=== PATIENT | male | born 1950 | race Caucasian/White ===

== ENCOUNTER 2024-05-29 18:28 | Inpatient (IN) ==
--- NOTE | 2024-05-29 18:53 | Emergency Department Note ---
Impression & Plan Abscess of prostate, Acute prostatitis, Altered mental status, Hypomagnesemia, Elevated troponin I level, Sinus tachycardia ED Provider Note NAME: MATEUS GUTIERREZ AGE: 73 SEX: M : 1950 ARRIVES VIA: Ambulance INFORMANT: Patient, EMS ED PROVIDER(S): Jarrell Ziegler DO CHIEF COMPLAINT: Altered mental status HPI: The patient is a 73-year-old male who presented to the emergency department for an evaluation of altered mental status. 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 He states that he felt well today. He denies any drug or alcohol use. The patient was driving erratically in his truck. The traffic was stopped. The police were called. The patient was evaluated and was felt to be having a medical emergency. 911 was called and the patient arrived via ambulance. The patient denies having any chest pain or abdominal pain. On arrival to the emergency department he had a large watery bowel movement. He denies having any abdominal pain or back pain. He denies having any headaches. ROS: See above HPI for pertinent positives & negatives. A total of 10 systems reviewed and were otherwise negative. PAST MEDICAL HISTORY: See Below PAST SURGICAL HISTORY: See Below FAMILY HISTORY: See Below SOCIAL HISTORY: See Below HOME MEDICATIONS: See Below ALLERGIES: See Below VITALS: See Below PHYSICAL EXAMINATION: GENERAL: The patient is awake and alert. The patient is nonanxious appearing. EYES: The conjunctivae are clear. The pupils are round and reactive. EARS, NOSE, MOUTH AND THROAT: The nose is without any evidence of any deformity. Mucous membranes are dry. NECK: The neck is nontender and supple. RESPIRATORY: Normal respiratory effort is noted there is no evidence of wheezing rhonchi or rales CARDIOVASCULAR: Tachycardic and regular heart sounds were noted to auscultation. There is no definite murmur. GASTROINTESTINAL: The abdomen was soft and distended. There is no tenderness guarding rigidity MUSCULOSKELETAL/EXTREMITIES: There is no evidence of gross deformity full range of motion is noted in the hips and shoulders. SKIN: There is no obvious evidence of any rash. There are no petechiae, pallor or cyanosis noted. NEUROLOGIC: Patient is awake alert and oriented x3 strength is symmetric patellar reflexes are 2+ bilaterally MEDICAL DECISION MAKING: The patient is a 73-year-old male who presented to the emergency department for an evaluation of altered mental status. 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 He was driving down the highway when he became confused. He was driving very erratically. Police were called. The police called the ambulance when the patient appeared to have a medical emergency. The patient arrived tachycardic. He was awake and alert at that time and had no focal neurologic deficit. He had no abdominal pain. The patient had a large amount of diarrhea when he first got to the emergency department. There was concerns given the patient's vital signs that he may be septic. For this reason a septic workup was undertaken. The patient was given IV fluids as well as IV antibiotics. Antibiotic coverage was broadened after CAT scan was finally returned and does appear to be consistent with a possible prostate abscess. I discussed patient's condition with the on-call [facility] hospitalist. They have agreed to evaluate the patient in the emergency department. The patient was found to have escalating troponins which could be secondary to the sepsis. Triage Nursing notes reviewed. Prior medical records reviewed Vital Signs: reviewed and remarkable for tachycardia. Differential diagnosis: Infection, hypoglycemia, electrolyte abnormalities, overdose, toxicologic, cardiac sources, intracerebral event, neurologic, trauma, as well as other pathologies. ER treatment provided: See below Diagnostics interpreted by me: ECG: EKG was obtained in the emergency department. My interpretation is sinus tachycardia at 130 bpm. There is no PVCs noted. Nonspecific ST depressions were noted. No previous tracing was available. Cardiac Monitoring: An order was placed for continuous cardiac monitoring. The monitor shows a rate of 118 bpm with sinus tachycardia. Laboratory studies: As stated above and show below. Imaging studies: See below. Radiographic imaging was reviewed by myself Consultation(s): I discussed this case with Dr. Brewer [facility] ED COURSE: Procedures: none Critical Care: I have personally spent greater than 45 minutes of critical care time in the direct management of this patient. This includes bedside care, interpretation of diagnostic studies, and testing, discussion with consultants, patient, and family members, and other required patient management activities. This 45 minutes is in excess of all separately billable procedures. Past Med/Surg History Problem List (Updated 05/29/24 @ 21:02 by Jarrell Ziegler DO) Sinus tachycardia (Acute) Elevated troponin I level (Acute) Hypomagnesemia (Acute) Altered mental status (Acute) Medical History Hypertension Diabetes High cholesterol Social History Smoking Status: Never smoker Preferred Language: Indonesian Feels Safe at Home: Yes Allergies Allergies Allergy/AdvReac Type Severity Reaction Status Date / Time Penicillins Allergy Unknown Verified 05/29/24 20:08 Results & Data (ED) Vital Signs Vital Signs - 24 hr 05/29/24 18:40 05/29/24 18:40 05/29/24 18:40 Temperature 37 C Temperature Source Oral Pulse Rate 128 H Pulse Rate [Apical] Pulse Rhythm Regular Pulse Rhythm [Apical] Pulse Strength Normal Pulse Strength [Apical] Respiratory Rate 18 Respiratory Effort / Characteristics Non-Labored Spontaneous Respiratory Depth Normal Respiratory Pattern Regular Blood Pressure 142/68 H Blood Pressure [Right Arm] Blood Pressure Mean 92 Blood Pressure Mean [Right Arm] Blood Pressure Position Lying Blood Pressure Position [Right Arm] Pulse Oximetry 95 95 95 Oxygen Delivery Method Room Air Room Air Room Air Oxygen Flow Rate Sepsis Recent Fever Within 48 Hours No Sepsis New/Unexplained Change in Mental Status Yes Sepsis Action Taken by Nursing Physician Notified 05/29/24 18:55 05/29/24 19:40 05/29/24 20:15 Temperature Temperature Source Pulse Rate 132 H Pulse Rate [Apical] 142 H 132 H Pulse Rhythm Pulse Rhythm [Apical] Regular Regular Pulse Strength Pulse Strength [Apical] Normal Normal Respiratory Rate 20 22 19 Respiratory Effort / Characteristics Non-Labored Spontaneous Non-Labored Spontaneous Respiratory Depth Normal Normal Respiratory Pattern Regular Regular Blood Pressure 141/63 H Blood Pressure [Right Arm] 125/58 L Blood Pressure Mean 89 Blood Pressure Mean [Right Arm] 80 Blood Pressure Position Blood Pressure Position [Right Arm] Lying Pulse Oximetry 94 96 96 Oxygen Delivery Method Room Air Room Air Oxygen Flow Rate Sepsis Recent Fever Within 48 Hours Sepsis New/Unexplained Change in Mental Status Sepsis Action Taken by Nursing 05/29/24 20:19 05/29/24 20:35 05/29/24 20:36 Temperature Temperature Source Pulse Rate 134 H 129 H Pulse Rate [Apical] Pulse Rhythm Pulse Rhythm [Apical] Pulse Strength Pulse Strength [Apical] Respiratory Rate 29 H Respiratory Effort / Characteristics Respiratory Depth Respiratory Pattern Blood Pressure 134/75 Blood Pressure [Right Arm] Blood Pressure Mean 94 Blood Pressure Mean [Right Arm] Blood Pressure Position Blood Pressure Position [Right Arm] Pulse Oximetry 88 L 93 Oxygen Delivery Method Room Air Nasal Cannula Oxygen Flow Rate 2 Sepsis Recent Fever Within 48 Hours Sepsis New/Unexplained Change in Mental Status Sepsis Action Taken by Nursing 05/29/24 21:00 05/29/24 21:03 05/29/24 21:26 Temperature Temperature Source Pulse Rate 123 H Pulse Rate [Apical] 121 H 120 H Pulse Rhythm Pulse Rhythm [Apical] Regular Regular Pulse Strength Pulse Strength [Apical] Normal Normal Respiratory Rate 32 H 20 26 H Respiratory Effort / Characteristics Non-Labored Spontaneous Non-Labored Spontaneous Respiratory Depth Normal Normal Respiratory Pattern Regular Regular Blood Pressure Blood Pressure [Right Arm] 119/70 130/65 Blood Pressure Mean Blood Pressure Mean [Right Arm] 86 86 Blood Pressure Position Blood Pressure Position [Right Arm] Lying Lying Pulse Oximetry 96 95 Oxygen Delivery Method Room Air Nasal Cannula Oxygen Flow Rate 2 Sepsis Recent Fever Within 48 Hours Sepsis New/Unexplained Change in Mental Status Sepsis Action Taken by Nursing 05/29/24 22:23 Temperature 39.4 C H Temperature Source Oral Pulse Rate Pulse Rate [Apical] 132 H Pulse Rhythm Pulse Rhythm [Apical] Regular Pulse Strength Pulse Strength [Apical] Normal Respiratory Rate 28 H Respiratory Effort / Characteristics Non-Labored Spontaneous Respiratory Depth Normal Respiratory Pattern Regular Blood Pressure Blood Pressure [Right Arm] 124/72 Blood Pressure Mean Blood Pressure Mean [Right Arm] 89 Blood Pressure Position Blood Pressure Position [Right Arm] Lying Pulse Oximetry 93 Oxygen Delivery Method Room Air Oxygen Flow Rate Sepsis Recent Fever Within 48 Hours Sepsis New/Unexplained Change in Mental Status Sepsis Action Taken by Retirement Medications Current Medication List: was personally reviewed by me Laboratory Data Attestation: I reviewed the patient's lab results. 05/29/24 18:50 05/29/24 18:50 Lab Results 05/29/24 05/29/24 05/29/24 Range/Units 18:50 19:05 20:04 WBC 9.81 (4.8-10.8) K/ul RBC 3.81 L (4.70-6.10) M/uL Hgb 10.4 L (14.0-18.0) g/dl POC Hgb 10.5 L (14.0-18.0) g/dl Hct 32.9 L (42.0-52.0) % POC Hct 31 L (42-52) % MCV 86.4 (80.0-100.0) fL MCH 27.3 (25.0-34.0) pg MCHC 31.6 L (32.0-36.0) g/dL RDW Std Deviation 47.0 H (36.4-46.3) fL RDW Coeff of Michael 14.8 H (11.5-14.5) % Plt Count 304 (130-400) K/uL MPV 9.3 L (9.4-12.4) fL Immature Gran % (Auto) 0.4 % Neut % (Auto) 95.0 % Lymph % (Auto) 3.9 % Pinal % (Auto) 0.2 % Eos % (Auto) 0.3 % Baso % (Auto) 0.2 % Neut # (Auto) 9.32 H (1.40-6.50) K/uL Lymph # (Auto) 0.38 L (1.20-3.40) K/uL Pinal # (Auto) 0.02 L (0.11-0.59) K/uL Eos # (Auto) 0.03 (0.00-0.50) K/uL Baso # (Auto) 0.02 (0.00-0.20) K/uL Immature Gran # (Auto) 0.04 (0.01-0.20) K/uL Hyposegmented Neuts 1+ Toxic Vacuolation 1+ Polychromasia 1+ PT 12.4 H (9.0-12.0) Seconds INR 1.2 H (0.9-1.1) APTT 21 (21-31) Seconds PTT Ratio 0.8 VBG pH 7.43 H (7.36-7.41) VBG pCO2 40 (38-50) mmHg VBG pO2 < 20 mmHg VBG HCO3 27 mmol/L VBG O2 Saturation < 60.0 % VBG Base Excess 2.0 mEq/L POC Sodium 138 (135-144) mmol/L Sodium 137 (136-145) mmol/L POC Potassium 4.0 (3.3-5.0) mmol/L Potassium 3.7 (3.5-5.1) mmol/L POC Chloride 101 (101-112) mmol/L Chloride 101 (98-107) mmol/L Carbon Dioxide 25 (21-32) mmol/L POC Total CO2 23 L (24-31) mmol/L Anion Gap 11 (3-11) POC Anion Gap 20.0 (16-25) mmol/L POC BUN 20 H (7-18) mg/dl BUN 20 (6-23) mg/dl Creatinine 1.46 H (0.6-1.4) mg/dl POC Creatinine 1.7 H (0.6-1.3) mg/dl Est Cr Clr Drug Dosing Not Reportable eGFR 50.15 BUN/Creatinine Ratio 13.7 (10-20) Glucose 219 H (70-99(Fasting)) mg/dl POC Glucose (other) 202 H (70-99) mg/dl Lactate 2.6 H* (0.4-2.0) mmol/L Calcium 10.1 (8.6-10.3) mg/dl POC Ioniz Calcium Ara 1.26 (1.12-1.32) mmol/l Magnesium 1.2 L (1.7-2.4) mg/dl Total Bilirubin 1.0 (0.2-1.0) mg/dl Direct Bilirubin 0.3 H (0-0.2) mg/dl AST 19 (13-39) U/L ALT 42 (7-52) U/L Alkaline Phosphatase 80 (34-104) U/L Troponin I High Sens 242.0 H* (0-20) pg/ml Total Protein 7.0 (6.0-8.3) gm/dl Albumin 3.9 (3.4-5.0) gm/dl Procalcitonin 4.25 H (0-0.5) ng/ml Ethyl Alcohol mg/dL < 10.0 (<10.0) mg/dl 05/29/24 05/29/24 Range/Units 20:05 21:11 WBC (4.8-10.8) K/ul RBC (4.70-6.10) M/uL Hgb (14.0-18.0) g/dl POC Hgb (14.0-18.0) g/dl Hct (42.0-52.0) % POC Hct (42-52) % MCV (80.0-100.0) fL MCH (25.0-34.0) pg MCHC (32.0-36.0) g/dL RDW Std Deviation (36.4-46.3) fL RDW Coeff of Michael (11.5-14.5) % Plt Count (130-400) K/uL MPV (9.4-12.4) fL Immature Gran % (Auto) % Neut % (Auto) % Lymph % (Auto) % Pinal % (Auto) % Eos % (Auto) % Baso % (Auto) % Neut # (Auto) (1.40-6.50) K/uL Lymph # (Auto) (1.20-3.40) K/uL Pinal # (Auto) (0.11-0.59) K/uL Eos # (Auto) (0.00-0.50) K/uL Baso # (Auto) (0.00-0.20) K/uL Immature Gran # (Auto) (0.01-0.20) K/uL Hyposegmented Neuts Toxic Vacuolation Polychromasia PT (9.0-12.0) Seconds INR (0.9-1.1) APTT (21-31) Seconds PTT Ratio VBG pH (7.36-7.41) VBG pCO2 (38-50) mmHg VBG pO2 mmHg VBG HCO3 mmol/L VBG O2 Saturation % VBG Base Excess mEq/L POC Sodium (135-144) mmol/L Sodium (136-145) mmol/L POC Potassium (3.3-5.0) mmol/L Potassium (3.5-5.1) mmol/L POC Chloride (101-112) mmol/L Chloride (98-107) mmol/L Carbon Dioxide (21-32) mmol/L POC Total CO2 (24-31) mmol/L Anion Gap (3-11) POC Anion Gap (16-25) mmol/L POC BUN (7-18) mg/dl BUN (6-23) mg/dl Creatinine (0.6-1.4) mg/dl POC Creatinine (0.6-1.3) mg/dl Est Cr Clr Drug Dosing eGFR BUN/Creatinine Ratio (10-20) Glucose (70-99(Fasting)) mg/dl POC Glucose (other) (70-99) mg/dl Lactate 2.0 (0.4-2.0) mmol/L Calcium (8.6-10.3) mg/dl POC Ioniz Calcium Ara (1.12-1.32) mmol/l Magnesium (1.7-2.4) mg/dl Total Bilirubin (0.2-1.0) mg/dl Direct Bilirubin (0-0.2) mg/dl AST (13-39) U/L ALT (7-52) U/L Alkaline Phosphatase (34-104) U/L Troponin I High Sens 1224.2 H* D (0-20) pg/ml Total Protein (6.0-8.3) gm/dl Albumin (3.4-5.0) gm/dl Procalcitonin (0-0.5) ng/ml Ethyl Alcohol mg/dL (<10.0) mg/dl Administered Medications Discontinued Medications Sodium Chloride (Nss) 1,000 mls @ 999 mls/hr IV .Q1H1M ONE Stop: 05/29/24 19:40 Last Admin: 05/29/24 19:43 Dose: 999 mls/hr Documented By: GISELA Magnesium Sulfate/Dextrose (Magnesium Sulfate / D5w) 1 gm in 100 mls @ 100 mls/hr IV Q1H CASSANDRA Stop: 05/29/24 21:55 Last Admin: 05/29/24 22:02 Dose: 100 mls/hr Documented By: Infusion: 05/29/24 21:47 Dose: Infused Documented By: Admin: 05/29/24 20:47 Dose: 100 mls/hr Documented By: GISELA Sodium Chloride (Nss) 1,000 mls @ 999 mls/hr IV .Q1H1M ONE Stop: 05/29/24 21:19 Last Admin: 05/29/24 20:52 Dose: 999 mls/hr Documented By: GISELA Sodium Chloride (Nss) 500 mls @ 999 mls/hr IV .Q31M ONE Stop: 05/29/24 20:49 Last Admin: 05/29/24 21:16 Dose: 999 mls/hr Documented By: GISELA Cefepime HCl (Maxipime 2000mg) 2,000 mg in 20 mls @ 5 mls/min IV NOW STA; Protocol Stop: 05/29/24 21:01 Last Admin: 05/29/24 21:15 Dose: 5 mls/min Documented By: GISELA Ioversol (Optiray 320 125ml) 117 ml IV ONCE ONE Stop: 05/29/24 19:41 Last Admin: 05/29/24 19:40 Dose: 117 ml Documented By: GIOVANNI Imaging Data Attestation: I personally reviewed and interpreted this imaging study as follows: My Impression: CT of the brain was obtained in the emergency department. My interpretation is no intracranial hemorrhage or mass effect, final report below. CT of the chest was obtained. My interpretation is no free air or signs of definite infiltrate, final report below. CT of the abdomen and pelvis was obtained. My interpretation is no free air or signs of bowel obstruction, final report below. Radiologist's Impression: Abdomen/Pelvis CT 05/29/24 18:40 Exam(s): CT ABDOMEN + PELVIS With Contrast IV Amt: 117 ml optiray 320 EXAM: CT Abdomen and Pelvis With Intravenous Contrast CLINICAL HISTORY: Reason for exam: ams. TECHNIQUE: Axial computed tomography images of the abdomen and pelvis with intravenous contrast. CTDI is 23.96 mGy and DLP is 1229.07 mGy-cm. Automated exposure control was utilized for the study. A dose lowering technique was utilized adhering to the principles of ALARA. Bilateral arms in the field of view, mild breathing and patient motion limits evaluation. CONTRAST: Patient received 117 ml optiray 320 of IV contrast COMPARISON: None. FINDINGS: Lung bases: Clear. Small hiatal hernia. Liver: Mild fatty infiltration. Gallbladder and bile ducts: No ductal dilation. Pancreas: No ductal dilation, or acute pancreatitis. Spleen: Unremarkable. Adrenals: Unremarkable. Kidneys and ureters: Small cortical renal cysts. No pyelonephritis or hydronephrosis. Stomach and bowel: No obstruction. Diverticulosis without acute diverticulitis. Appendix: Normal. Intraperitoneal space: No free air or fluid. Bones/joints: No acute fracture. Soft tissues: Unremarkable. Vasculature: No aortic aneurysm. Lymph nodes: No enlarged lymph nodes. Bladder/Reproductive: Markedly abnormal centrally cystic or necrotic mass indenting the inferior urinary bladder, likely associated with the prostate gland, measuring 9.7 x 7.2 x 7.2 cm. Could reflect abscess, urinoma and/or neoplasm. Bladder is only mildly distended with wall thickening, nonspecific. Cannot rule out cystitis. IMPRESSION: 1. Large centrally cystic or necrotic mass of the prostate gland, indenting the urinary bladder, nonspecific, could reflect abscess, urine collection and/or neoplasm. 2. Bladder wall thickening, cannot rule out cystitis. 3. No ascites or adenopathy. 4. Incidental fatty liver, hiatal hernia, diverticulosis and renal cysts. Electronically signed by: Gretta Dye M.D. 05/29/24 21:33 PM Chest CTA 05/29/24 18:40 Exam(s): CTA CHEST IV Amt: 117 ml optiray 320 EXAM: CT Angiography Chest With Intravenous Contrast CLINICAL HISTORY: Reason for exam: PE. TECHNIQUE: Axial computed tomographic angiography images of the chest with intravenous contrast. CTDI is 33.17 mGy and DLP is 1129.23 mGy-cm. Automated exposure control was utilized for the study. A dose lowering technique was utilized adhering to the principles of ALARA. 117 ML Optiray 320 given IV. Suboptimal bolus, bilateral arms in the field of view and breathing motion artifact moderately limits evaluation, particularly for small or peripheral disease MIP reconstructed images were created and reviewed. COMPARISON: None. FINDINGS: Pulmonary arteries: No large or central pulmonary embolism. Limited detail for peripheral disease due to suboptimal bolus and breathing motion artifact. Aorta: No dissection or aneurysm. Lungs: Clear. No consolidation. Pleural space: No significant effusion. No pneumothorax. Heart: Moderate cardiomegaly. No significant pericardial effusion. No evidence of elevated right heart pressures. Bones/joints: No acute fracture. Soft tissues: Small hiatal hernia and mild fatty liver. Lymph nodes: No enlarged lymph nodes. IMPRESSION: 1. No definite pulmonary embolism. Limited detail for peripheral disease due to artifact. 2. Moderate cardiomegaly, small hiatal hernia and fatty liver. 3. Lungs are clear. Electronically signed by: Gretta Dye M.D. 05/29/24 21:20 PM Chest X-Ray 05/29/24 18:40 Exam(s): XR CXR 1 VIEW EXAM: XR Chest, 1 View CLINICAL HISTORY: Reason for exam: Sepsis. TECHNIQUE: Frontal view of the chest. COMPARISON: Chest CT, same date FINDINGS: Lungs: Mild vascular prominence, stable, likely chronic. No consolidation. Pleural space: No pneumothorax. Heart: Mild cardiomegaly. Mediastinum: Unremarkable. Bones/Soft Tissues: No acute abnormality. IMPRESSION: 1. No definite acute process in the chest. Electronically signed by: Gretta Dye M.D. 05/29/24 22:[address] 05/29/24 18:40 Exam(s): CT HEAD Without Contrast EXAM: CT Head Without Intravenous Contrast CLINICAL HISTORY: Reason for exam: ams. TECHNIQUE: Axial computed tomography images of the head/brain without intravenous contrast. CTDI is 36.31 mGy and DLP is 624.41 mGy-cm. Automated exposure control was utilized for the study. A dose lowering technique was utilized adhering to the principles of ALARA. COMPARISON: No relevant prior studies available. FINDINGS: Brain: No hemorrhage. No apparent acute cortical infarct. No mass lesion or midline shift. Senescent changes. Ventricles: No hydrocephalus. Bones/joints: No acute fracture. Soft tissues: Unremarkable. Sinuses: No acute sinusitis. Mastoid air cells: No mastoid effusion. Orbits: No acute process. IMPRESSION: No acute intracranial process. Electronically signed by: Sai Perez M.D. 05/29/24 20:27 PM Discharge Plan Visit Data Chief Complaint: Confusion Stated Complaint: AMS ED Provider: Jarrell Ziegler Discharge Problem: Abscess of prostate, Acute prostatitis, Altered mental status, Hypomagnesemia, Elevated troponin I level, Sinus tachycardia Patient Disposition: Being Evaluated by Hospitalist Forms Stand Alone Forms: [facility] Referrals Referrals: PCP,NO [Primary Care Provider] - Discharge Problem: Altered mental status Qualifiers: Altered mental status type: transient alteration of awareness Qualified Code(s): R40.4 - Transient alteration of awareness
[2024-05-29 19:12] LABS: Hematocrit (blood only) 32.9 % (42.0-52.0); Hemoglobin 10.4 g/dl (14.0-18.0); Mean Corpuscular Hemoglobin 27.3 pg (25.0-34.0); Mean Corpuscular Hgb Conc 31.6 g/dL (32.0-36.0); Mean Corpuscular Volume 86.4 fL (80.0-100.0); Mean Platelet Volume 9.3 fL (9.4-12.4); Platelet Count 304 K/uL (130-400); RDW Coefficient of Variation 14.8 % (11.5-14.5); Red Blood Count 3.81 M/uL (4.70-6.10); White Blood Count 9.81 K/ul (4.8-10.8)
[2024-05-29 19:18] LABS: iSTAT Creatinine 1.7 mg/dl (0.6-1.3); iSTAT Hemoglobin 10.5 g/dl (14.0-18.0); iSTAT Ionized Calcium 1.26 mmol/l (1.12-1.32)
[2024-05-29 19:31] LABS: Alanine Aminotransferase 42 U/L (7-52); Albumin Level 3.9 gm/dl (3.4-5.0); Alkaline Phosphatase 80 U/L (34-104); Anion Gap 11 (3-11); Aspartate Aminotransferase 19 U/L (13-39); BUN Creatinine Ratio 13.7 (10-20); Bilirubin Direct 0.3 mg/dl (0-0.2); Blood Urea Nitrogen 20 mg/dl (6-23); Calcium 10.1 mg/dl (8.6-10.3); Carbon Dioxide 25 mmol/L (21-32); Chloride 101 mmol/L (98-107); Glucose 219 mg/dl (70-99(Fasting)); Magnesium 1.2 mg/dl (1.7-2.4); Potassium 3.7 mmol/L (3.5-5.1); Sodium 137 mmol/L (136-145)
[2024-05-29] MEDS: OPTIRAY 320 125ml IV ONE (19:40)
[2024-05-29 19:43] LABS: INR 1.2 (0.9-1.1); Partial Thromboplastin Ratio 0.8; Partial Thromboplastin Time 21 Seconds (21-31); Prothrombin Time 12.4 Seconds (9.0-12.0)
[2024-05-29] MEDS: SODIUM CHLORIDE 0.9% 1,000 ML IV ONE ×2 (19:43→20:52)
[2024-05-29 19:49] LABS: Basophils # (auto) 0.02 K/uL (0.00-0.20); Basophils % (auto) 0.2 %; Eosinophils # (auto) 0.03 K/uL (0.00-0.50); Eosinophils % (auto) 0.3 %; Immature Granulocytes # (auto) 0.04 K/uL (0.01-0.20); Immature Granulocytes % (auto) 0.4 %; Lymphocytes # (auto) 0.38 K/uL (1.20-3.40); Lymphocytes % (auto) 3.9 %; Monocytes # (auto) 0.02 K/uL (0.11-0.59); Monocytes % (auto) 0.2 %; Neutrophils # (auto) 9.32 K/uL (1.40-6.50); Polychromasia 1+; Toxic Vacuolation 1+
[2024-05-29 20:13] LABS: HCO3 VBG 27 mmol/L; Oxygen Saturation VBG < 60.0 %; PCO2 VBG 40 mmHg (38-50); PO2 VBG < 20 mmHg; pH VBG 7.43 (7.36-7.41)
--- NOTE | 2024-05-29 20:28 | CT Scan Report ---
Exam(s): CT HEAD Without Contrast EXAM: CT Head Without Intravenous Contrast CLINICAL HISTORY: Reason for exam: ams. TECHNIQUE: Axial computed tomography images of the head/brain without intravenous contrast. CTDI is 36.31 mGy and DLP is 624.41 mGy-cm. Automated exposure control was utilized for the study. A dose lowering technique was utilized adhering to the principles of ALARA. COMPARISON: No relevant prior studies available. FINDINGS: Brain: No hemorrhage. No apparent acute cortical infarct. No mass lesion or midline shift. Senescent changes. Ventricles: No hydrocephalus. Bones/joints: No acute fracture. Soft tissues: Unremarkable. Sinuses: No acute sinusitis. Mastoid air cells: No mastoid effusion. Orbits: No acute process. IMPRESSION: No acute intracranial process. Electronically signed by: Sai Perez M.D. 05/29/24 20:27 PM
[2024-05-29] MEDS: MAGNESIUM SULFATE / D5W 1 GM/100 ML BAG IV SCH (20:47)
[2024-05-29] MEDS: CEFEPIME 2000MG 2,000 MG/20 ML SYR IV STA (21:15)
[2024-05-29] MEDS: SODIUM CHLORIDE 0.9% 500 ML IV ONE (21:16)
--- NOTE | 2024-05-29 21:21 | CT Scan Report ---
Exam(s): CTA CHEST IV Amt: 117 ml optiray 320 EXAM: CT Angiography Chest With Intravenous Contrast CLINICAL HISTORY: Reason for exam: PE. TECHNIQUE: Axial computed tomographic angiography images of the chest with intravenous contrast. CTDI is 33.17 mGy and DLP is 1129.23 mGy-cm. Automated exposure control was utilized for the study. A dose lowering technique was utilized adhering to the principles of ALARA. 117 ML Optiray 320 given IV. Suboptimal bolus, bilateral arms in the field of view and breathing motion artifact moderately limits evaluation, particularly for small or peripheral disease MIP reconstructed images were created and reviewed. COMPARISON: None. FINDINGS: Pulmonary arteries: No large or central pulmonary embolism. Limited detail for peripheral disease due to suboptimal bolus and breathing motion artifact. Aorta: No dissection or aneurysm. Lungs: Clear. No consolidation. Pleural space: No significant effusion. No pneumothorax. Heart: Moderate cardiomegaly. No significant pericardial effusion. No evidence of elevated right heart pressures. Bones/joints: No acute fracture. Soft tissues: Small hiatal hernia and mild fatty liver. Lymph nodes: No enlarged lymph nodes. IMPRESSION: 1. No definite pulmonary embolism. Limited detail for peripheral disease due to artifact. 2. Moderate cardiomegaly, small hiatal hernia and fatty liver. 3. Lungs are clear. Electronically signed by: Gretta Dye M.D. 05/29/24 21:20 PM
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
--- NOTE | 2024-05-29 21:34 | CT Scan Report ---
Exam(s): CT ABDOMEN + PELVIS With Contrast IV Amt: 117 ml optiray 320 EXAM: CT Abdomen and Pelvis With Intravenous Contrast CLINICAL HISTORY: Reason for exam: ams. TECHNIQUE: Axial computed tomography images of the abdomen and pelvis with intravenous contrast. CTDI is 23.96 mGy and DLP is 1229.07 mGy-cm. Automated exposure control was utilized for the study. A dose lowering technique was utilized adhering to the principles of ALARA. Bilateral arms in the field of view, mild breathing and patient motion limits evaluation. CONTRAST: Patient received 117 ml optiray 320 of IV contrast COMPARISON: None. FINDINGS: Lung bases: Clear. Small hiatal hernia. Liver: Mild fatty infiltration. Gallbladder and bile ducts: No ductal dilation. Pancreas: No ductal dilation, or acute pancreatitis. Spleen: Unremarkable. Adrenals: Unremarkable. Kidneys and ureters: Small cortical renal cysts. No pyelonephritis or hydronephrosis. Stomach and bowel: No obstruction. Diverticulosis without acute diverticulitis. Appendix: Normal. Intraperitoneal space: No free air or fluid. Bones/joints: No acute fracture. Soft tissues: Unremarkable. Vasculature: No aortic aneurysm. Lymph nodes: No enlarged lymph nodes. Bladder/Reproductive: Markedly abnormal centrally cystic or necrotic mass indenting the inferior urinary bladder, likely associated with the prostate gland, measuring 9.7 x 7.2 x 7.2 cm. Could reflect abscess, urinoma and/or neoplasm. Bladder is only mildly distended with wall thickening, nonspecific. Cannot rule out cystitis. IMPRESSION: 1. Large centrally cystic or necrotic mass of the prostate gland, indenting the urinary bladder, nonspecific, could reflect abscess, urine collection and/or neoplasm. 2. Bladder wall thickening, cannot rule out cystitis. 3. No ascites or adenopathy. 4. Incidental fatty liver, hiatal hernia, diverticulosis and renal cysts. Electronically signed by: Gretta Dye M.D. 05/29/24 21:33 PM
--- NOTE | 2024-05-29 22:39 | XRay Report ---
Exam(s): XR CXR 1 VIEW EXAM: XR Chest, 1 View CLINICAL HISTORY: Reason for exam: Sepsis. TECHNIQUE: Frontal view of the chest. COMPARISON: Chest CT, same date FINDINGS: Lungs: Mild vascular prominence, stable, likely chronic. No consolidation. Pleural space: No pneumothorax. Heart: Mild cardiomegaly. Mediastinum: Unremarkable. Bones/Soft Tissues: No acute abnormality. IMPRESSION: 1. No definite acute process in the chest. Electronically signed by: Gretta Dye M.D. 05/29/24 22:38 PM
[2024-05-29 22:41] LABS: Amphetamines+Metham, Urine Neg (Neg); Barbiturates, Urine Neg (Neg); Benzodiazepine, Urine Neg (Neg); Cocaine, Urine Neg (Neg); Fentanyl, Urine Neg (Neg); MDMA (Ecstacy), Urine Neg (Neg); Marijuana, Urine Neg (Neg); Methadone, Urine Neg (Neg); Opiate, Urine Neg (Neg); Phencyclidine, Urine Neg (Neg)
[2024-05-29] MEDS: DAPTOmycin 425 MG in SYRINGE 0 ML IV STA (22:41)
[2024-05-29 22:45] LABS: Appearance Urine Clear (Clear); Bacteria Urine Automated None Seen (None Seen); Bilirubin Urine Negative (Negative); Blood Urine 1+ (Negative); Cast Urine Automated 0-2 /lpf (0-2); Color Urine Dark Yellow; Epithelial Cell Urine Auto 0-2 /hpf (0-2); Glucose Urine UA Negative (Negative); Ketones Urine 1+ (Negative); Leukocyte Esterase Urine Negative (Negative); Nitrite Urine Positive (Negative); Protein Urine Trace (Negative); RBC Urine Automated >20 /hpf (0-2); Specific Gravity Urine > 1.045 (1.000-1.030); Urobilinogen Urine Negative (Negative); WBC Urine Automated 0-5 /hpf (0-5)
[2024-05-29] MEDS: MEROPENEM 500 MG in SYRINGE 0 ML IV STA (22:45)
[2024-05-29] MEDS: PIPERACILLIN/TAZOBACTAM 4.5 GM/100 ML BAG IV SCH (23:08)
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
[2024-05-29] MEDS: ACETAMINOPHEN 1,000 MG/100 ML VIAL IV STA (23:48)
[2024-05-29] MEDS: METOPROLOL TARTRATE 1 MG/ML VIAL IV STA (23:48)
[2024-05-29] MEDS ORDERED: fentaNYL citrate PF 100 MCG/2 ML VIAL ONE (23:54)
[2024-05-29] MEDS ORDERED: MIDAZOLAM HCL 1 MG/ML 2ML VIAL ONE (23:54)
--- NOTE | 2024-05-30 00:06 | Anesthesiology Consultation ---
Date of Service May 30, 2024 Assessment & Plan Chart Review Chart Review: Acceptable Risk for Surgery Consults Requested none History Surgery Operation Date: 05/29/24 23:50 Proposed Procedures p Transurethral Resection Prostate - Fer Agudelo MD Height/Weight Height: 5 ft 9 in Weight: 83.6 kg Allergies Allergy/AdvReac Type Severity Reaction Status Date / Time Penicillins Allergy Unknown Verified 05/29/24 20:08 Past Medical History Medical History Hypertension Diabetes High cholesterol Social History Smoking Status: Never smoker Physical Exam Vital Signs Last Vital Signs Temp 39.4 C H 05/29/24 22:23 Pulse 115 H 05/29/24 23:54 Resp 30 H 05/29/24 23:54 BP 133/74 05/29/24 23:54 Pulse Ox 93 05/29/24 23:54 O2 Del Method Nasal Cannula 05/29/24 23:54 O2 Flow Rate 2 05/29/24 23:54 Testing Laboratory Results 05/29/24 18:50 05/29/24 18:50 PT 12.4 Seconds (9.0-12.0) H 05/29/24 18:50 INR 1.2 (0.9-1.1) H 05/29/24 18:50 APTT 21 Seconds (21-31) 05/29/24 18:50 Urine Color Dark Yellow 05/29/24 21:51 Urine Appearance Clear (Clear) 05/29/24 21:51 Urine pH 5.0 (4.5-7.5) 05/29/24 21:51 Ur Specific [place] > 1.045 (1.000-1.030) H 05/29/24 21:51 Urine Protein Trace (Negative) H 05/29/24 21:51 Urine Glucose (UA) Negative (Negative) 05/29/24 21:51 Urine Ketones 1+ (Negative) H 05/29/24 21:51 Urine Nitrite Positive (Negative) A 05/29/24 21:51 Ur Leukocyte Esterase Negative (Negative) 05/29/24 21:51 Urine WBC (Auto) 0-5 /hpf (0-5) 05/29/24 21:51 Urine RBC (Auto) >20 /hpf (0-2) H 12/04/24 21:51 U Hyaline Cast (Auto) 0-2 /lpf (0-2) 05/29/24 21:51 U Epithel Cells (Auto) 0-2 /hpf (0-2) 05/29/24 21:51 Urine Bacteria (Auto) None Seen (None Seen) 05/29/24 21:51 05/29/24 19:05 POC Glucose (other) 202 H
[2024-05-30] MEDS ORDERED: PROMETHAZINE HCL 6.25 MG in SODIUM CHLORIDE 0.9% 50 ML IV PRN (00:09)
[2024-05-30] MEDS ORDERED: fentaNYL citrate PF 100 MCG/2 ML VIAL IV PRN (00:09)
[2024-05-30] MEDS ORDERED: ATROPINE SULFATE 0.1 MG/ML 10ML SYR IV PRN (00:09)
[2024-05-30] MEDS ORDERED: ePHEDrine sulfate 50 MG/ML AMP IV PRN (00:09)
[2024-05-30] MEDS ORDERED: HYDROmorphone INJ 2 MG/ML SYR/VIAL IV PRN (00:09)
[2024-05-30] MEDS ORDERED: ONDANSETRON INJ 2 MG/ML 2 ML VIAL IV PRN (00:09)
[2024-05-30] MEDS ORDERED: DEXAMETHASONE SOD INJ 4 MG/ML VIAL ONE (00:19)
[2024-05-30] MEDS ORDERED: LIDOCAINE 2% 2 ML VIAL/AMP(20MG/ML) INFIL ONE (00:19)
[2024-05-30] MEDS ORDERED: SUCCINYLCHOLINE CHLORIDE 20 MG/ML 10 ML VIAL IV ONE (00:19)
[2024-05-30] MEDS ORDERED: ONDANSETRON INJ 2 MG/ML 2 ML VIAL ONE (00:19)
[2024-05-30] MEDS ORDERED: PROPOFOL IV EMULSION 10 MG/ML 20 ML VIAL IV ONE (00:19)
[2024-05-30] MEDS ORDERED: fentaNYL citrate PF 100 MCG/2 ML VIAL ONE (01:04)
[2024-05-30] MEDS ORDERED: PHENYLEPHRINE 100MCG/ML 5ML SYR ONE (01:14)
[2024-05-30] MEDS ORDERED: MIDAZOLAM HCL 1 MG/ML 2ML VIAL ONE (01:15)
[2024-05-30] MEDS ORDERED: VASOPRESSIN 20 UNIT/ML VIAL ONE (01:16)
--- NOTE | 2024-05-30 01:36 | Operative Report ---
PG Post Operative Report Pre & Post Diagnosis Operation Date: 05/29/24 23:50 Pre: sepsis; prostate abscess Post: sepsis; prostate abscess I identified the patient and participated in the time-out.: Yes Procedure Operation Date: 05/29/24 23:50 Procedure: Urethral dilation; TURP Surgeon Fer Agudelo MD Construction Job Cost Estimator None Estimated Blood Loss 5 Findings Consistent with Post-Op Diagnosis Specimens Prostate chips Description of Procedure The patient was identified in the preoperative holding area, appropriate informed consents were reviewed and completed and the patient was transferred to the operative suite. Upon arrival, appropriate antibiotics and anesthesia were administered and the patient was placed in dorsal lithotomy position and prepped and draped in sterile fashion. Before beginning the case I did perform a digital rectal examination to palpate the prostate determine abnormalitiesthe left aspect of his prostate was extremely fluctuant and protuberant consistent with an acute prostate abscess To begin the cystoscopy portion of the case I attempted to pass a 27 Ethiopian resectoscope per urethra but his meatus would not accommodate the scope. I perf ormed a dilation of his meatus from 22-30 Ethiopian. I was unable to advance the scope. As the scope advanced through the urethra I encountered no strictures. His prostate is extremely enlarged with a substantial lateral lobe hypertrophy and a very high bladder neck and intravesical intrusion. Entry through the prostate did not reveal any purulent discharge or draining sinuses. Inspection of the bladder was relatively unremarkable. He has some edema and irritation consistent with some underlying infection but ureteral orifices were in orthotopic position and there were no other mucosal abnormalities of particular note. The CT appears to show that the predominance of the fluid collection is anterior and on the left aspect of the prostate. This extends up to the level of the bladder neck. With this in mind I attempted to begin my resection on the anterior tissue at the bladder neck with the hope that I could unroofed the abscess early. The first wipe with a loop electrode revealed pus. Pus began draining from this area rapidly. I was able to extend my incision into the cavity after exposing it. I continued to do this and drained pus from the area. I washed out the bladder numerous times. There was still continued draining pus from this extremely large cavity. I continued to unroofed it until I felt that we had washed out and expose the underlying cavity entirely. There was a thin flap of tissue which had been covering this cavity which remained and I resected that tissue to completely expose the underlying cavity. I obtained meticulous hemostasis. I trimmed some bladder neck tissue to allow easier passage of a catheter. I irrigated all chips out of the bladder and passed them off the table. I reinspected the abscess cavity on several occasions to confirm no other loculations that remained undrained. There was some question in my mind about the right upper/anterior aspect of the prostate based on the CT. I did perform a mild resection of the anterior bladder neck tissue on the right. This did not reveal any abscess. At that time I felt that we had adequately drained the abscess. He was remaining stable from an anesthesia standpoint. I elected to conclude the case and I placed a 22 Ethiopian three-way Quinones catheter. Gentle CBI was initiated to assure adequate irrigation of pus out of the bladder throughout the night. I performed a repeat digital rectal examination at the conclusion of the case and there was a notable improvement in the exam with decreased fluctuance and protuberance of the left Niranjan prostate. He was left intubated and taken to the ICU in stable but guarded condition. I attest to the content of the Intraoperative Record and any orders documented therein. Any exceptions are noted below.
--- NOTE | 2024-05-30 02:04 | Anesthesiology Progress Note ---
Date of Service May 30, 2024 Anesthesia Post Procedure Vital Signs Vital Signs: Temp Pulse Pulse Resp BP BP Pulse Ox 05/29/24 23:54 115 H 30 H 133/74 93 05/29/24 23:48 135 H 38 H 05/29/24 23:48 135 H 137/76 05/29/24 23:45 137/76 05/29/24 23:45 137/76 05/29/24 23:45 137/76 05/29/24 23:45 137/76 05/29/24 23:45 137/76 05/29/24 23:30 149/83 H 05/29/24 23:30 149/83 H 05/29/24 23:24 139 H 41 H 05/29/24 23:00 140/76 05/29/24 23:00 140/76 05/29/24 23:00 133 H 30 H 05/29/24 22:45 132/84 05/29/24 22:39 127 H 29 H 05/29/24 22:30 125/67 05/29/24 22:30 125/67 05/29/24 22:23 39.4 C H 132 H 28 H 124/72 93 05/29/24 22:15 124/72 05/29/24 22:09 130 H 30 H 05/29/24 21:26 120 H 26 H 130/65 95 05/29/24 21:03 121 H 20 119/70 96 05/29/24 21:00 123 H 32 H 05/29/24 20:36 129 H 29 H 134/75 93 05/29/24 20:35 88 L 05/29/24 20:19 134 H 05/29/24 20:15 132 H 19 141/63 H 96 05/29/24 19:40 132 H 22 125/58 L 96 05/29/24 18:55 142 H 20 94 05/29/24 18:40 95 05/29/24 18:40 95 05/29/24 18:40 37 C 128 H 18 142/68 H 95 O2 Del Method O2 Flow Rate 05/29/24 23:54 Nasal Cannula 2 05/29/24 23:48 05/29/24 23:48 05/29/24 23:45 05/29/24 23:45 05/29/24 23:45 05/29/24 23:45 05/29/24 23:45 05/29/24 23:30 05/29/24 23:30 05/29/24 23:24 05/29/24 23:00 05/29/24 23:00 05/29/24 23:00 05/29/24 22:45 05/29/24 22:39 05/29/24 22:30 05/29/24 22:30 05/29/24 22:23 Room Air 05/29/24 22:15 05/29/24 22:09 05/29/24 21:26 Nasal Cannula 2 05/29/24 21:03 Room Air 05/29/24 21:00 05/29/24 20:36 Nasal Cannula 2 05/29/24 20:35 Room Air 05/29/24 20:19 05/29/24 20:15 05/29/24 19:40 Room Air 05/29/24 18:55 Room Air 05/29/24 18:40 Room Air 05/29/24 18:40 Room Air 05/29/24 18:40 Room Air Transfer of Care Handoff Completed per policy Notes Mental Status: see notes below Patient Amnestic to Procedure: Yes Nausea / Vomiting: adequately controlled Pain: adequately controlled Airway Patency, RR, SpO2: stable & adequate BP & HR: see Notes below Hydration State: stable & adequate Anesthetic Complications: no major complications apparent Notes: Pt septic on arrival due to prostate abscess. Had TURP under [facility]. Pt was a difficult Glidescope intubation, required pressors for BP support, and had high oxygen requirement. Not reversed at end. Placed on mech vent in SICU. + BLBS in SICU. Norepinephrine infusion started for BP support. Plan for supportive care, wean as tolerated by ICU staff.
--- NOTE | 2024-05-30 02:19 | Critical Care Consultation ---
Date of Consultation May 30, 2024 Assessment & Plan (1) Septic shock: Reason Critically Ill: 73-year-old male with past medical history of HTN, DM type II, HLD pre-Zentz to the ICU mechanically ventilated and in septic shock, currently postop for TURP with drainage of abscess of the prostate. Neuro - Encephalopathypatient reported to be altered mental status on arrival to the hospital. Likely due to underlying sepsis. Currently sedated on fentanyl and Versed drips postop. CT head was negative for acute intracranial findings Cardiac - Shocklikely septic in etiology as patient was tachycardic and febrile but hemodynamically stable prior to surgery. Since drainage of prostate abscess pat ient is in septic shock. May have underlying cardiac component and currently has elevated troponins but suspect this is demand ischemia. Likely has underlying coronary disease as well. TTE currently pending. No ST elevations on EKG but initial EKG did show ST depressions in the precordial leads which was not present on repeat. Random cortisol within normal limits. Patient did get hypoxic after fluid resuscitation and is currently mechanically ventilated. Careful with further fluid resuscitation. Avoid antihypertensives. A-line for continuous hemodynamic monitoring. Continue Levophed and vasopressin drips to maintain MAP greater than 65. Wean as tolerated Respiratory - Acute hypoxemic respiratory failureno known previous history of pulmonary disease although patient did become hypoxic after fluid resuscitation and was left mechanically ventilated following surgery. Chest x-ray consistent with acute CHF/pulmonary congestion. Suspect underlying heart failure. Hold on diuresis as patient is currently hypotensive. DuoNebs as needed. Continuous end-tidal CO2 and pulse ox monitoring. Wean vent as tolerated. Follow-up morning ABG and chest x-ray. GI - N.p.o. Famotidine twice daily RENAL/LYTES - AKIunsure of baseline creatinine but patient presents with creatinine of 1.46, BUN within normal range. Possibly prerenal due to sepsis. Unknown if patient has underlying CKD. Avoid nephrotoxins and renally adjust medications. Continue with fluid resuscitation as tolerated. Maintain MAP greater than 65. Monitor routine BMPs and replete electrolytes as indicated - Prostate abscessstatus post TURP for source control. 2 way Quinones catheter management per urology. Strict I's and O's ENDO - DM type IIpatient reported taking p.o. medications to manage type 2 diabetes - Currently hyperglycemic. Will start on insulin drip -Hemoglobin A1c pending HEME - H&H stable, monitor routine CBC ID - Sepsislikely due to large prostate abscess, for which she has undergone source control following TURP - Blood cultures and urine culture pending - Continue meropenem daptomycin for now LINES/IV ACCESS - Right CVC IJ, left radial A-line. Peripheral IVs DVT PROPHYLAXIS - SCDs, hold anticoagulation following procedure Thank you for allowing us to participate in the care of this patient. Please refer to my attending physician's documentation for any further recommendations. (2) Prostate abscess: (3) NSTEMI (non-ST elevated myocardial infarction): (4) Hypertension: (5) Diabetes: (6) High cholesterol: (7) Altered mental status: Supervising Physician Co-Signing Physician Notes Patient separately seen and examined by me. Agree with the note above aside for any additions/exceptions noted: Patient with signs of septic shock related to prostate abscess and UTI. He is clinically improving with broad-spectrum antibiotics and is now off pressors and extubated. He is alert and oriented x 3. Will remove arterial line in the next few hours if hemodynamics remain stable. Can likely downgrade potentially later today or early tomorrow depending on clinical course. Would recommend at least 7 days of antibiotics. It does not appear that surgical cultures were obtained during his TURP. Blood cultures are now growing gram-negative bacilli. PCR is suggesting Bacteroides fragilis. Will continue meropenem. Consider ID consultation. Patient did have demand ischemia likely due to septic shock. Echo within normal EF. No wall motion abnormalities. Urine output remains good. Follow creatinine daily. CRITICAL CARE TIME I have personally spent 44 minutes of critical care time in the direct management of this patient. This is a life/limb threatening event. This includes time spent evaluating patient, direct bedside care, chart review, placing orders, interpretation of diagnostic studies, discussion with consultants, patient, and family members, as well as other required patient management activities. This time is exclusive of all separately billable procedures, and teaching time and separate from and in addition to any other critical care service time. History of Present Illness Attending Physician: Dhaval Bhatia MD History of Present Illness Patient is a 73-year-old male with past medical history significant for HTN, DM type II, who presented to the emergency department with altered mental status. 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 He presents to the emergency department where he was found to be febrile with elevated lactate and tachycardic. CT abdomen pelvis revealed large prostate abscess and he was taken emergently to the OR where he received TURP with drainage of the abscess for source control. Patient was also noted to have elevated troponin with initial EKG showing ST depression in precordial leads, and suspect underlying CAD. Cardiology was consulted and recommended proceeding with urology procedure for source control. In the OR patient was noted to be hypoxic and hypotensive, he was left intubated postop and he is requiring vasopressors for septic shock. Central line and A- line inserted on arrival to the ICU. Of note, patient was noted to be difficult anterior airway for intubation. He remains in ICU for further management at this time. Allergies Allergy/AdvReac Type Severity Reaction Status Date / Time Penicillins Allergy Unknown Verified 05/29/24 20:08 Patient History Medical History Hypertension Diabetes High cholesterol Social History Smoking Status: Never smoker Preferred Language: Tamazight Communication Ability Comment: unable to respond Current Living Situation Comment: unable to respond Feels Safe at Home: Yes Assistive Devices Comment: unable to respond Review of Systems Review of Systems: All systems reviewed & are unremarkable except as noted in HPI & below Physical Exam Constitutional: + obese and + mechanically ventilated Eyes: PERRL, conjunctivae normal, anicteric sclerae ENMT: external ear and nose normal, oropharynx normal Neck: trachea midline, no thyromegaly Respiratory: Symmetrical chest wall movement. Mechanically ventilated. Coarse crackles auscultated bilaterally in all lung hendricks. Cardiovascular: RRR, no murmur, no edema Heart Sounds: normal S1 and normal S2 Extremities: + edema Gastrointestinal (Abdomen): Abdomen obese, soft. Bowel sounds auscultated all 4 quadrants Musculoskeletal: no cyanosis or clubbing, extremities motor strength 5/5 Skin: no rashes, warm and dry Neurologic: PERRLA. Cough gag corneal intact. Psychiatric: Unable to assess due to sedation Genitourinary: Indwelling Quinones catheter present. Results & Data Results & Data Vital Signs (Past 12 Hours) Vital Signs Temp Pulse Pulse Resp BP BP Pulse Ox 12/04/24 23:54 115 H 30 H 133/74 93 05/29/24 23:48 135 H 38 H 05/29/24 23:48 135 H 137/76 05/29/24 23:45 137/76 05/29/24 23:45 137/76 05/29/24 23:45 137/76 05/29/24 23:45 137/76 05/29/24 23:45 137/76 05/29/24 23:30 149/83 H 05/29/24 23:30 149/83 H 05/29/24 23:24 139 H 41 H 05/29/24 23:00 140/76 05/29/24 23:00 140/76 05/29/24 23:00 133 H 30 H 05/29/24 22:45 132/84 05/29/24 22:39 127 H 29 H 05/29/24 22:30 125/67 05/29/24 22:30 125/67 05/29/24 22:23 39.4 C H 132 H 28 H 124/72 93 05/29/24 22:15 124/72 05/29/24 22:09 130 H 30 H 05/29/24 21:26 120 H 26 H 130/65 95 05/29/24 21:03 121 H 20 119/70 96 05/29/24 21:00 123 H 32 H 05/29/24 20:36 129 H 29 H 134/75 93 05/29/24 20:35 88 L 05/29/24 20:19 134 H 05/29/24 20:15 132 H 19 141/63 H 96 05/29/24 19:40 132 H 22 125/58 L 96 05/29/24 18:55 142 H 20 94 05/29/24 18:40 95 05/29/24 18:40 95 05/29/24 18:40 37 C 128 H 18 142/68 H 95 O2 Del Method O2 Flow Rate 05/29/24 23:54 Nasal Cannula 2 05/29/24 23:48 05/29/24 23:48 05/29/24 23:45 05/29/24 23:45 05/29/24 23:45 05/29/24 23:45 05/29/24 23:45 05/29/24 23:30 05/29/24 23:30 05/29/24 23:24 05/29/24 23:00 05/29/24 23:00 05/29/24 23:00 05/29/24 22:45 05/29/24 22:39 05/29/24 22:30 05/29/24 22:30 05/29/24 22:23 Room Air 05/29/24 22:15 05/29/24 22:09 05/29/24 21:26 Nasal Cannula 2 05/29/24 21:03 Room Air 05/29/24 21:00 05/29/24 20:36 Nasal Cannula 2 05/29/24 20:35 Room Air 05/29/24 20:19 05/29/24 20:15 05/29/24 19:40 Room Air 05/29/24 18:55 Room Air 05/29/24 18:40 Room Air 05/29/24 18:40 Room Air 05/29/24 18:40 Room Air Coding Level of Care Code 48517 CRITICAL CARE 1ST 30-74M Diagnoses Septic shock A41.9; R65.21 Prostate abscess N41.2 NSTEMI (non-ST elevated myocardial infarction) I21.4 Hypertension I10 Diabetes E11.9 High cholesterol E78.00 Altered mental status R40.4 Altered mental status type: transient alteration of awareness (7) Altered mental status Altered mental status type: transient alteration of awareness Qualified Code(s): R40.4 - Transient alteration of awareness
--- NOTE | 2024-05-30 02:20 | Procedure Note ---
Procedure Note Date of Service May 30, 2024 ARTERIAL LINE PROCEDURE NOTE: Procedure: Arterial Line Placement Attending: Dr. Armando Provider: GIOVANNI Becerra Indication: Monitoring on Pressors Anesthesia: None Line placed emergently in the setting of septic shock requiring continuous hemodynamic monitoring and intubated patient with frequent ABGs A time-out was completed verifying correct patient, procedure, site, positioning, and implant(s) or special equipment if applicable. Aguila's test was performed to ensure adequate perfusion. Patient's Left wrist was prepped and draped in the usual sterile fashion. Ultrasound guidance was used to aid needle placement. A 20g Arrow arterial line was introduced into the Left radial artery. Catheter was threaded, and the needle was removed with appropriate blood return. Good waveform was observed. The patient tolerated the procedure well. []Confirmation of placement with ultrasound. Blood Loss: Minimal Complications: None Procedural Ultrasound Guidance: Procedure Date: 05/30/2024 Indication: Arterial line insertion Attending: Dr. Armando Provider: GIOVANNI Becerra Artery Identified: YES Line confirmed in Artery with ultrasound: Yes Complications: NONE Patient tolerated procedure: WELL MNP Procedure Codes (Charges) Tubes, Drains, and Vasc Access Procedure 1: Tubes, Drains, and Vasc Access: [id number] Arterial Cath/Cannulation Samp ling/Monitoring/Transfusion Procedure 2: Tubes, Drains, and Vasc Access: [id number] Ultrasound Guidance For Vascular Coding CPT Codes Tubes, Drains, and Vasc Access - Tubes, Drains, and Vasc Access: [id number] Arterial Cath/Cannulation Sampling/Monitoring/Transfusion ([id number]) Tubes, Drains, and Vasc Access - Tubes, Drains, and Vasc Access: [id number] Ultrasound Guidance For Vascular ([id number]) Additional Codes Date of Service ([facility].SURGERY)
--- NOTE | 2024-05-30 02:20 | Procedure Note ---
Procedure Note Date of Service May 30, 2024 INTERNAL JUGULAR CENTRAL LINE PROCEDURE NOTE: Procedure: Internal Jugular Central Line Placement Attending: Dr. Armando Provider: GIOVANNI Becerra Indication: Central Drug Administration, Poor Venous Access, Multiple Lab Draws Necessary, etc. Anesthesia: None Line placed emergently in the setting of septic shock requiring vasopressor support A time-out was completed verifying correct patient, procedure, site, positioning, and implants(s) or special equipment if applicable. Patient's Right Neck was cleansed and draped in the typical sterile fashion using Chloraprep. The Internal Jugular Vein and Carotid Artery were identified using ultrasound. The superficial tissue was anesthetized using [] mL of 1% lidocaine without epinephrine under direct visualization with the ultrasound. After adequate anesthetization was achieved, the Internal Jugular vein was cannulated under direct ultrasound guidance using an introducer needle on a syringe. Good venous blood return was maintained prior to removal of syringe from introducer needle. Using Seldinger Technique, a guide wire was advanced through the introducer needle without resistance. The introducer needle was removed and ultrasound images were obtained of the guide wire within the Internal Jugular Vein and saved to the patient's medical record. A small incision was made in penetrating fashion at the guide wire insertion site utilizing an 11 blade scalpel. The dilator was advanced to the vessel without resistance. The dilator was exchanged for the triple lumen catheter which was advanced into the vessel without resistance. The guide wire was removed intact from the catheter without issue. Claves were placed on each catheter tip with confirmation of good blood flow from each lumen. Each port was easily flushed with sterile saline. The catheter was placed at 60 cm and sutured in place. BioPatch was applied to the catheter and a sterile Tegaderm dressing was applied over the catheter with careful attention to sterility. Patient tolerated procedure well. No immediate complications were met. Post procedure x-ray was completed, placement was appropriate and no pneumothorax was noted. Images obtained are saved for permanent record Procedural Ultrasound Guidance: Procedure Date: 05/30/2024 Indication: Central venous catheter insertion Attending: Dr. Armando Provider: GIOVANNI Becerra Artery AND Vein visualized: yes Compressible Vein: yes Guidewire or Short Catheter seen in vein prior to dilation: yes Line confirmed in Vein with ultrasound: yes Images obtained are saved for permanent record. [facility] [place] Procedure Codes (Charges) Tubes, Drains, and Vasc Access Procedure 1: Tubes, Drains, and Vasc Access: [id number] Insertion Of Non-tunneled Catheter Age 5 Yrs> Procedure 2: Tubes, Drains, and Vasc Access: [id number] Ultrasound Guidance For Vascular Coding CPT Codes Tubes, Drains, and Vasc Access - Tubes, Drains, and Vasc Access: [id number] Insertion Of Non-tunneled Catheter Age 5 Yrs> ([id number]) Tubes, Drains, and Vasc Access - Tubes, Drains, and Vasc Access: [id number] Ultrasound Guidance For Vascular ([id number]) Additional Codes Date of Service (PG.SURGERY)
[2024-05-30] MEDS ORDERED: STAT IV Infusion **Titration per Protocol STA ×2 (02:21→05:39)
[2024-05-30] MEDS ORDERED: MIDAZOLAM BOLUS FROM BAG IV PRN (02:21)
[2024-05-30] MEDS ORDERED: ACETAMINOPHEN 1,000 MG/100 ML VIAL IV PRN (02:21)
[2024-05-30] MEDS ORDERED: fentaNYL BOLUS from BAG IV PRN (02:21)
[2024-05-30] MEDS ORDERED: GLUCAGON FOR INJ 1 MG VIAL SQ PRN (02:31)
[2024-05-30] MEDS ORDERED: CARBOHYDRATES FOR HYPOGLYCEMIA PO PRN (02:31)
[2024-05-30] MEDS ORDERED: GLUCOSE 10 TAB/TUBE PO PRN (02:31)
[2024-05-30] MEDS ORDERED: GLUCOSE 40% GEL 15 GM TUBE PO PRN (02:31)
[2024-05-30] MEDS ORDERED: DEXTROSE 50% 50 ML SYRINGE IV PRN (02:31)
[2024-05-30] MEDS: MIDAZOLAM HCL 125 MG/250 ML BAG IV SCH (02:38)
[2024-05-30] MEDS: NOREPINEPHRINE/D5W 4 MG/250 ML PLCT IV SCH (02:38)
[2024-05-30] MEDS: fentaNYL citrate 2,500 MCG/250 ML BAG IV SCH (02:38)
[2024-05-30] MEDS: VASOPRESSIN 20 UNITS in SODIUM CHLORIDE 0.9% 100 ML IV SCH (02:38)
[2024-05-30] MEDS: ACETAMINOPHEN 1,000 MG/100 ML VIAL IV PRN (02:39)
[2024-05-30 03:13] LABS: Hematocrit (blood only) 26.7 % (42.0-52.0); Hemoglobin 8.3 g/dl (14.0-18.0); Mean Corpuscular Hemoglobin 27.2 pg (25.0-34.0); Mean Corpuscular Hgb Conc 31.1 g/dL (32.0-36.0); Mean Corpuscular Volume 87.5 fL (80.0-100.0); Mean Platelet Volume 9.3 fL (9.4-12.4); Platelet Count 244 K/uL (130-400); RDW Standard Deviation 47.7 fL (36.4-46.3); Red Blood Count 3.05 M/uL (4.70-6.10); White Blood Count 18.96 K/ul (4.8-10.8)
[2024-05-30] MEDS: INSULIN ASPART PER UNIT CHARGE SC SCH ×3 (03:25→17:44)
[2024-05-30 03:27] LABS: Albumin Globulin Ratio 1.3 (0.9-2); BUN Creatinine Ratio 13.2 (10-20); Creatinine Clr Calc Pharmacy 40.8 ml/min; Globulin 2.4 gm/dl (2.5-4.0); Potassium 3.8 mmol/L (3.5-5.1); Total Protein 5.4 gm/dl (6.0-8.3); Troponin I High Sensitivity 1874.6 pg/ml (0-20)
[2024-05-30] MEDS: SODIUM CHLORIDE 0.9% 1,000 ML IV SCH (03:29)
[2024-05-30] MEDS: fentaNYL citrate 2,500 MCG/250 ML BAG IV ONE (03:31)
[2024-05-30] MEDS: NOREPINEPHRINE/D5W 4 MG/250 ML IV ONE (03:31)
[2024-05-30] MEDS: MIDAZOLAM HCL 125MG/250ML D5W IV ONE (03:31)
[2024-05-30 03:34] LABS: Basophils # (auto) 0.05 K/uL (0.00-0.20); Basophils % (auto) 0.3 %; Eosinophils % (auto) 0.5 %; Immature Granulocytes # (auto) 0.32 K/uL (0.01-0.20); Immature Granulocytes % (auto) 1.7 %; Lymphocytes # (auto) 0.45 K/uL (1.20-3.40); Lymphocytes % (auto) 2.4 %; Monocytes # (auto) 0.61 K/uL (0.11-0.59); Monocytes % (auto) 3.2 %; Neutrophils # (auto) 17.43 K/uL (1.40-6.50); Neutrophils % (auto) 91.9 %; RBC Morphology Unremarkable
[2024-05-30] MEDS: POTASSIUM CHLORIDE / WTR 20 MEQ/100 ML PLCT IV ONE (04:04)
--- NOTE | 2024-05-30 05:11 | Billing Data ---
Date of Service May 30, 2024 Coding Level of Care Code 00334 CRITICAL CARE
[2024-05-30 05:49] LABS: iSTAT Allen Test Pass; iSTAT Art Bld Gas pCO2 Correct 39 mmHg (35-46); iSTAT Art Bld Gas pH Corrected 7.271 (7.35-7.45); iSTAT Arterial Blood Gas HCO3 18 meg/L (19-24); iSTAT Arterial Blood Gas pCO2 39 mmHg (35-46); iSTAT Arterial Blood Gas pH 7.28 (7.35-7.45); iSTAT Arterial Blood Gas pO2 173 mmHg (80-95); iSTAT Arterial Blood Gas pO2 C 175; iSTAT Carbon Dioxide 19 mmol/L (24-31); iSTAT FiO2 60 %; iSTAT Hematocrit 28 % (42-52); iSTAT Hemoglobin 9.5 g/dl (14.0-18.0); iSTAT Potassium 4.9 mmol/L (3.3-5.0); iSTAT Sample Type Arterial; iSTAT Site Art Line; iSTAT Sodium 135 mmol/L (135-144); iSTAT SpO2 100
[2024-05-30] MEDS: MEROPENEM 500 MG in SYRINGE 0 ML IV SCH (06:09)
[2024-05-30] MEDS: INSULIN PROTOCOL GOAL RANGE ONE (06:24)
[2024-05-30] MEDS: INSULIN HUMAN REGULAR IV BOLUS 3 UNITS in SYRINGE 0 ML IV ONE (06:26)
[2024-05-30] MEDS: INSULIN REGULAR 250 UNITS in SODIUM CHLORIDE 0.9% 247.5 ML IV SCH (06:30)
[2024-05-30 07:13] LABS: Estimated Average Glucose 151 mg/dl; Hemoglobin A1C 6.9 % (4.5-5.6)
[2024-05-30 08:24] LABS: Magnesium 1.8 mg/dl (1.7-2.4); Phosphorus 4.4 mg/dl (2.5-4.9)
--- NOTE | 2024-05-30 08:24 | XRay Report ---
EXAM: XR chest 1V portable CLINICAL HISTORY: CENTRAL LINE PLACEMENT [facility] TECHNIQUE: X-ray image of the chest was obtained in 1 view: AP projection. COMPARISON: No prior studies are available for comparison. FINDINGS: Central venous line is seen with its tip in a normal position. The endotracheal tube is seen with its tip 4.6 cm from soumya in normal position. Pulmonary Parenchyma: Prominent bronchovascular markings are seen in bilateral perihilar regions. Minimal blunting of left costophrenic angle is seen likely due to minimal pleural thickening/effusion. Heart and Mediastinum: Heart size and shape are normal. No mediastinal widening or masses. No hilar or mediastinal lymphadenopathy. The right hilum appears prominent. Bony Thorax: Bony thorax appears intact without fractures or deformities. Soft Tissues: Soft tissues overlying the chest wall are unremarkable. IMPRESSION: Central venous line is seen with its tip in normal position. The endotracheal tube is seen with its tip 4.6 cm from soumya in normal position. Imaging findings are likely due to pulmonary congestion, clinical and lab correlation is advised to rule out pulmonary infection. Electronically signed by Christine Reyes 05-30-2024 08:24 AM
[2024-05-30 08:47] LABS: Troponin I High Sensitivity 902.1 pg/ml (0-20)
--- NOTE | 2024-05-30 09:26 | Urology Progress Note ---
Date of Service May 30, 2024 Assessment & Plan (1) Prostate abscess: (2) Septic shock: Plan: 73 yo/M admitted for septic shock and prostate abscess. Patient is status post urethral dilation and TURP for prostate abscess He remains critically ill in ICU Febrile overnight Tmax 39.8, afebrile at present He is mechanically ventilated and on pressors Labs todaycreatinine 1.59, WBC 18.96, hemoglobin 8.3 Blood cultures are pending Continue broad-spectrum antibiotics and narrow per sensitivity data when available Quinones patent and draining clear urine with CBI moderately fast, CBI slowed during exam Plan to wean CBI as appropriate Maintain Quinones catheter Continue antibiotics, supportive care and medical management per intensivists Patient reassessed around 11 am and he was extubated and answering questions Clamped CBI during assessment, will plan to discontinue CBI if urine remains appropriate Maintain Quinones and plan for voiding trial when his condition improves/prior to discharge Recommend he f/u with his urologist at home for ongoing management will sign off, recall as needed Admission and Anticipated Discharge Date Admission Date: May 30, 2024 Subjective Patient postop urethral dilation and TURP for prostate abscess. Remains in ICU mechanically ventilated on pressors. Febrile overnight with Tmax 39.8. Labs today reviewedcreatinine 1.59, WBC 18.96, hemoglobin 8.3. Blood cultures are pending. He is on meropenem and daptomycin. RN spoke to patient's via telephone and patient had a prostate biopsy at home recently, awaiting pathology. Review of Systems Review of Systems: Unobtainable due to reduced consciousness Patient mechanically ventilated Physical Exam Constitutional: no acute distress Respiratory: mechanically ventilated Cardiovascular: Rate/Rhythm: regular rate Genitourinary: Quinones draining clear urine with CBI moderately fast, CBI titrated down to slow Results & Data Vital Signs (Past 12 Hours) Vital Signs Temp Pulse Pulse Resp BP BP BP 05/30/24 07:38 64 21 05/30/24 06:00 37 C 72 20 110/56 L 106/30 L 05/30/24 05:00 37.5 C 78 20 117/57 L 107/54 L 05/30/24 04:00 38 C H 79 20 96/60 L 97/53 L 05/30/24 04:00 05/30/24 03:00 39.2 C H 103/55 L 05/30/24 03:00 103/55 L 05/30/24 03:00 103/55 L 05/30/24 03:00 38.6 C H 79 20 85/48 L 92/53 L 05/30/24 02:48 98 H 20 05/30/24 02:40 108/49 L 05/30/24 02:39 100 H 20 05/30/24 02:33 101 H 20 05/30/24 02:25 97 H 20 05/30/24 02:21 95/52 L 05/30/24 02:15 98 H 20 05/30/24 02:10 95/54 L 05/30/24 02:10 95/54 L 05/30/24 02:10 95/54 L 05/30/24 02:10 95/54 L 05/30/24 02:10 95/54 L 05/30/24 02:05 100/57 L 05/30/24 02:02 99/57 L 05/30/24 02:00 05/30/24 02:00 97/57 L 05/30/24 02:00 39.8 C H 97/57 L 05/30/24 02:00 97 H 20 05/30/24 01:56 94/59 L 05/30/24 01:56 94/59 L 05/30/24 01:55 37.5 C 97 H 20 94/59 L 05/30/24 01:54 97 H 20 05/30/24 01:53 92/59 L 05/30/24 01:51 107 H 20 05/30/24 01:50 88/57 L 05/30/24 01:50 37.7 C H 90 20 86/55 L 05/30/24 01:48 86/55 L 05/30/24 01:45 37.6 C H 92 H 20 83/65 L 05/30/24 01:40 37.8 C H 94 H 20 81/49 L 05/30/24 01:37 83/57 L 05/30/24 01:35 37.7 C H 92 H 20 85/58 L 05/30/24 01:30 39.5 C H 92 H 34 H 83/59 L 05/30/24 01:30 70/50 L 05/30/24 01:30 92 H 16 05/30/24 01:30 05/30/24 01:30 93 H 05/29/24 23:54 115 H 30 H 133/74 05/29/24 23:48 135 H 38 H 05/29/24 23:48 135 H 137/76 05/29/24 23:45 137/76 05/29/24 23:45 137/76 05/29/24 23:45 137/76 05/29/24 23:45 137/76 05/29/24 23:45 137/76 05/29/24 23:30 149/83 H 05/29/24 23:30 149/83 H 05/29/24 23:24 139 H 41 H 05/29/24 23:00 140/76 05/29/24 23:00 140/76 05/29/24 23:00 133 H 30 H 05/29/24 22:45 132/84 05/29/24 22:39 127 H 29 H 05/29/24 22:30 125/67 05/29/24 22:30 125/67 05/29/24 22:23 39.4 C H 132 H 28 H 124/72 05/29/24 22:15 124/72 05/29/24 22:09 130 H 30 H 05/29/24 21:26 120 H 26 H 130/65 Pulse Ox O2 Del Method O2 Flow Rate FiO2 05/30/24 07:38 99 40 05/30/24 06:00 96 Mechanical Vent 40 05/30/24 05:00 98 Mechanical Vent 60 05/30/24 04:00 99 Mechanical Vent 60 05/30/24 04:00 60 05/30/24 03:00 Mechanical Vent 60 05/30/24 03:00 05/30/24 03:00 05/30/24 03:00 98 Mechanical Vent 60 05/30/24 02:48 97 05/30/24 02:40 05/30/24 02:39 97 05/30/24 02:33 97 05/30/24 02:25 96 60 05/30/24 02:21 05/30/24 02:15 94 05/30/24 02:10 05/30/24 02:10 05/30/24 02:10 05/30/24 02:10 05/30/24 02:10 05/30/24 02:05 05/30/24 02:02 05/30/24 02:00 Mechanical Vent 60 05/30/24 02:00 05/30/24 02:00 05/30/24 02:00 93 05/30/24 01:56 05/30/24 01:56 05/30/24 01:55 96 Mechanical Vent 05/30/24 01:54 100 05/30/24 01:53 05/30/24 01:51 100 05/30/24 01:50 05/30/24 01:50 100 Mechanical Vent 05/30/24 01:48 05/30/24 01:45 99 Mechanical Vent 05/30/24 01:40 99 Mechanical Vent 05/30/24 01:37 05/30/24 01:35 99 Mechanical Vent 05/30/24 01:30 92 Mechanical Vent 60 05/30/24 01:30 05/30/24 01:30 95 Mechanical Vent 60 05/30/24 01:30 60 05/30/24 01:30 05/29/24 23:54 93 Nasal Cannula 2 05/29/24 23:48 05/29/24 23:48 05/29/24 23:45 05/29/24 23:45 05/29/24 23:45 05/29/24 23:45 05/29/24 23:45 05/29/24 23:30 05/29/24 23:30 05/29/24 23:24 05/29/24 23:00 05/29/24 23:00 05/29/24 23:00 05/29/24 22:45 05/29/24 22:39 05/29/24 22:30 05/29/24 22:30 05/29/24 22:23 93 Room Air 05/29/24 22:15 05/29/24 22:09 05/29/24 21:26 95 Nasal Cannula 2 PG Care Time/CCT Total # of Minutes Spent Total Time Spent with Patient: Total time spent is greater than 50% in coordination of care (as documented) at patient's floor/unit and/or counseling patient: Coding Level of Care Code 78620 SUB INP/OBS CARE 1/25MIN Diagnoses Prostate abscess N41.2 Septic shock A41.9; R65.21
[2024-05-30] MEDS: FAMOTIDINE 20MG IV PUSH 20 MG/5 ML SYR IV SCH (09:27)
--- NOTE | 2024-05-30 10:07 | Cardiology Consultation ---
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 By: [id number] Co-signed By: SHERIN Insulin Aspart (Insulin Aspart Per Unit Charge) 0 units SC Q6 [facility] Stop: 06/29/24 02:30 Last Admin: 05/30/24 03:25 Dose: 3 units Documented By: [id number] Co-signed By: CLC Insulin Aspart (Insulin Aspart Per Unit Charge) 0 units SC ACHS [facility] Stop: 06/29/24 07:29 Last Admin: 05/30/24 09:11 Dose: Not Given Documented By: WS Discontinued Medications Fentanyl Citrate (Fentanyl Citrate 2,500 Mcg/250 Ml Bag) Confirm Administered Do se 2,500 mcg IV .STK-MED ONE Stop: 05/30/24 01:36 Last Admin: 05/30/24 03:31 Dose: Not Given Documented By: [id number] Sodium Chloride (Nss) 1,000 mls @ 999 mls/hr IV .Q1H1M ONE Stop: 05/29/24 19:40 Last Infusion: 05/29/24 22:57 Dose: Infused Documented By: Admin: 05/29/24 19:43 Dose: 999 mls/hr Documented By: GISELA Magnesium Sulfate/Dextrose (Magnesium Sulfate / D5w) 1 gm in 100 mls @ 100 mls/hr IV Q1H [facility] Stop: 05/29/24 21:55 Last Infusion: 05/30/24 02:37 Dose: Infused Documented By: Admin: 05/29/24 22:02 Dose: 100 mls/hr Documented By: Infusion: 05/29/24 21:47 Dose: Infused Documented By: Admin: 05/29/24 20:47 Dose: 100 mls/hr Documented By: GISELA Piperacillin Sod/Tazobactam Sod (Zosyn) 4.5 gm in 100 mls @ 25 mls/hr IV Q8H CASSANDRA; Protocol Stop: 05/31/24 19:59 Last Admin: 05/29/24 23:08 Dose: Not Given Documented By: GISELA Sodium Chloride (Nss) 1,000 mls @ 999 mls/hr IV .Q1H1M ONE Stop: 05/29/24 21:19 Last Infusion: 05/29/24 22:56 Dose: Infused Documented By: Admin: 05/29/24 20:52 Dose: 999 mls/hr Documented By: GISELA Sodium Chloride (Nss) 500 mls @ 999 mls/hr IV .Q31M ONE Stop: 05/29/24 20:49 Last Infusion: 05/29/24 22:56 Dose: Infused Documented By: Admin: 05/29/24 21:16 Dose: 999 mls/hr Documented By: GISELA Cefepime HCl (Maxipime 2000mg) 2,000 mg in 20 mls @ 5 mls/min IV NOW STA; Protocol Stop: 05/29/24 21:01 Last Admin: 05/29/24 21:15 Dose: 5 mls/min Documented By: GISELA Daptomycin 425 mg/ Syringe 8.5 mls @ 4.25 mls/min IV NOW STA; Protocol Stop: 05/29/24 22:01 Last Admin: 05/29/24 22:41 Dose: 4.25 mls/min Documented By: GISELA Meropenem 500 mg/ Syringe 10 mls @ 2 mls/min IV NOW STA; Protocol Stop: 05/29/24 22:06 Last Admin: 05/29/24 22:45 Dose: 2 mls/min Documented By: GISELA Sodium Chloride (Nss) 1,000 mls @ 100 mls/hr IV .Q10H [facility] Stop: 05/30/24 08:44 Last Admin: 05/30/24 03:29 Dose: Not Given Documented By: [id number] Acetaminophen (Ofirmev) 1,000 mg in 100 mls @ 400 mls/hr IV Q8H PRN PRN Reason: Fever Stop: 06/01/24 23:24 Last Infusion: 05/30/24 03:00 Dose: Infused Documented By: [id number] Admin: 05/30/24 02:39 Dose: 400 mls/hr Documented By: SHERIN Acetaminophen (Ofirmev) 1,000 mg in 100 mls @ 400 mls/hr IV NOW STA Stop: 05/29/24 23:39 Last Infusion: 05/30/24 02:37 Dose: Infused Documented By: Admin: 05/29/24 23:48 Dose: 400 mls/hr Documented By: GISELA Potassium Chloride (K Sammy / Wtr) 20 meq in 100 mls @ 50 mls/hr IV ONE ONE; Protocol Stop: 05/30/24 05:48 Last Infusion: 05/30/24 06:05 Dose: Infused Documented By: [id number] Co-signed By: SHERIN Admin: 05/30/24 04:04 Dose: 50 mls/hr Documented By: [id number] Co-signed By: LORENZO Insulin Human Regular 3 units/ (Syringe) 3 mls @ 0 mls/min IV ONE ONE Stop: 05/30/24 06:16 Last Admin: 05/30/24 06:26 Dose: 1 mls/min Documented By: [id number] Co-signed By: SHERIN Ioversol (Optiray 320 125ml) 117 ml IV ONCE ONE Stop: 05/29/24 19:41 Last Admin: 05/29/24 19:40 Dose: 117 ml Documented By: GIOVANNI Metoprolol Tartrate (Metoprolol Tartrate 1 Mg/Ml Vial) 5 mg IV NOW STA Stop: 05/29/24 23:26 Last Admin: 05/29/24 23:48 Dose: 5 mg Documented By: GISELA Midazolam HCl (Midazolam Hcl 125mg/250ml D5w) Confirm Administered Dose 125 mg IV .STK-MED ONE Stop: 05/30/24 01:38 Last Admin: 05/30/24 03:31 Dose: Not Given Documented By: [id number] Miscellaneous (Insulin Protocol Goal Range ) 1 each N/A ONE ONE Stop: 05/30/24 05:40 Last Admin: 05/30/24 06:24 Dose: 1 each Documented By: [id number] Norepinephrine Bitartrate (Norepinephrine/D5w 4 Mg/250 Ml) Confirm Administered Dose 4 mg IV .STK-MED ONE Stop: 05/30/24 01:32 Last Admin: 05/30/24 03:31 Dose: Not Given Documented By: [id number] PG Care Time/CCT Total # of Minutes Spent Total Time Spent with Patient: Total time spent is greater than 50% in coordination of care (as documented) at patient's floor/unit and/or counseling patient:62 [place] [address] INT INP/OBS CARE 3/75MIN Patient Type New History Comprehensive Exam Comprehensive Medical Decision Making High Complexity Diagnoses NSTEMI (non-ST elevated myocardial infarction) I21.4 Elevated troponin I level R79.89 Sinus tachycardia R00.0 Septic shock A41.9; R65.21 Prostate abscess N41.2 Time Spent (min) 80
[2024-05-30 10:23] LABS: Appearance Urine Turbid (Clear); Bacteria Urine Automated None Seen (None Seen); Bilirubin Urine 1+ (Negative); Blood Urine 3+ (Negative); Cast Urine Automated 0-2 /lpf (0-2); Color Urine Orange; Glucose Urine UA Negative (Negative); Ketones Urine Trace (Negative); Leukocyte Esterase Urine 2+ (Negative); Nitrite Urine Positive (Negative); Protein Urine 3+ (Negative); RBC Urine Automated >20 /hpf (0-2); Specific Gravity Urine 1.025 (1.000-1.030); Urobilinogen Urine Negative (Negative); WBC Urine Automated >50 /hpf (0-5)
--- NOTE | 2024-05-30 10:47 | XCELERA ---
[id number] [email or web address]\[id number]
[2024-05-30 11:43] LABS: A calco-baum cmplx NotReported Not Detected (NotDetected); Bact fragilis Not Reported DETECTED (NotDetected); Blood Culture Id Panel See PCR Comment (NotDetected); C auris Not Reported Not Detected (NotDetected); Calbicans Not Reported Not Detected (NotDetected); Candida glabrata Not Reported Not Detected (NotDetected); Candida krusei Not Reported Not Detected (NotDetected); Cneoformans/gatti Not Reported Not Detected (NotDetected); Cparapsilosis Not Reported Not Detected (NotDetected); E cloacae compx Not Reported Not Detected (NotDetected); Efaecalis Not Reported Not Detected (NotDetected); Efaecium Not Reported Not Detected (NotDetected); Enterobacterales Not Reported Not Detected (NotDetected); Escherichia coli Not Reported Not Detected (NotDetected); H influenzae Not Reported Not Detected (NotDetected); K aerogenes Not Reported Not Detected (NotDetected); Koxytoca Not Reported Not Detected (NotDetected); Kpneumoniae grp Not Reported Not Detected (NotDetected); Lmonocyt Not Reported Not Detected (NotDetected); N meningitidis Not Reported Not Detected (NotDetected); P aeruginosa Not Reported Not Detected (NotDetected); Proteus spp Not Reported Not Detected (NotDetected); Salmonella spp Not Reported Not Detected (NotDetected); Staph lugdunensis Not Reported Not Detected (NotDetected); Staph spp. Not Reported Not Detected (NotDetected); Staphaureus Not Reported Not Detected (NotDetected); Staphepi Not Reported Not Detected (NotDetected); Stenmaltophilia Not Reported Not Detected (NotDetected); Strep agal(GrpB) Not Reported Not Detected (NotDetected); Strep pneum Not Reported Not Detected (NotDetected); Strep pyog (GrpA) Not Reported Not Detected (NotDetected); Strep spp Not Reported Not Detected (NotDetected)
[2024-05-30 11:59] LABS: Bacteroides fragilis DETECTED (NotDetected)
--- NOTE | 2024-05-30 15:02 | Electrocardiogram Report ---
Test Reason : Blood Pressure : */* mmHG Vent. Rate : 130 BPM Atrial Rate : 130 BPM P-R Int : 158 ms QRS Dur : 92 ms QT Int : 284 ms P-R-T Axes : 64 49 59 degrees QTcB Int : 417 ms Sinus tachycardia Nonspecific ST and T wave abnormality Abnormal ECG No previous ECGs available Confirmed by Jarrell Pearce ([id number]) on 05/30/2024 3:02:02 PM Referred By: NO PCP Confirmed By: Jarrell Pearce
--- NOTE | 2024-05-30 15:11 | Electrocardiogram Report ---
Test Reason : Blood Pressure : */* mmHG Vent. Rate : 127 BPM Atrial Rate : 127 BPM P-R Int : 126 ms QRS Dur : 94 ms QT Int : 304 ms P-R-T Axes : 59 46 36 degrees QTcB Int : 441 ms Sinus tachycardia Otherwise normal ECG When compared with ECG of 29-May-2024 18:37, (unconfirmed) Nonspecific T wave abnormality no longer evident in Lateral leads Confirmed by Jarrell Pearce ([id number]) on 05/30/2024 3:11:31 PM Referred By: NO PCP Confirmed By: Jarrell Pearce
[2024-05-30] MEDS ORDERED: PHARMACY GLYCEMIC MGMT CONSULT PRN (16:35)
[2024-05-30] MEDS ORDERED: Nursing to Pharmacy Communication SCH (17:15)
--- NOTE | 2024-05-30 19:02 | Hospitalist Progress Note ---
Date of Service May 30, 2024 Assessment & Plan (1) Septic shock: Plan: source - prostate abscess confirmed bacteremia today -- bacteroides on BioFire in light of nature of the abscess and to ensure source control will obtain repeat blood cx's in am off of pressors as of this am cortisol level adequate home BP meds (lisinopril) on hold cont meropenem can stop IV vanco narrow abx when able likely ID consult while here (2) Prostate abscess: Plan: POD #1 s/p I/D of abscess with TURP by Dr Agudelo appreciate his assistance suspect he developed the abscess as a complication of his recent prostate biopsies which, by report, were about 2 weeks ago in his home [facility] DM certainly is a risk factor for complications, infection, etc. cont IV meropenem pain meds prn (3) Bacteremia: Plan: 2nd to gram negative ivory and, on BioFire, this is Bacteroides see above repeat blood cx's am to ensure sterility/source control (4) Sepsis: Plan: as above (5) Elevated troponin I level: Plan: peak troponin 1874 this is a type 2 MT in the setting of his septic shock no evidence of ACS echo with preserved EF and normal LV wall motion seen by cardiology - no cath, etc needed at this time but consider asa, BB, etc after his illness is resolved (6) Hypomagnesemia: Plan: Mg= 1.2 upon admission repleted, resolved (7) Diabetes: Plan: hemoglobin a1c 6.9% per pharmacy records is on the following at home - * glipizide * januvia * metformin * actos * Ozempic hold all meds did require insulin infusion overnight per ICU protocol significant hyperglycemia in setting of #1 transition to basal-bolus SC regimen at this point DM diet (8) Hypertension: Plan: typically on alpha agustina & lisinopril at home both on hold (9) NSTEMI (non-ST elevated myocardial infarction): Plan: type 2 MT / myocardial demand ischemia see above (10) Acute metabolic encephalopathy: Plan: 2nd to #1 improved (11) Acute kidney injury: Plan: sepsis-associated ATN likely BMP am supportive care Plan start lovenox or heparin SC tomorrow PT, OT needed Donna extensively updated by phone this evening Admission and Anticipated Discharge Date Admission Date: May 30, 2024 Subjective events of last 24 hours noted patient was on pressors all night and weaned off this am was on vent post-op from his TURP/prostate abscess surgery - extubated to NC O2 this am w/o issue during my visit he awoke w/o difficulty could give medical history confirmed that about 2 weeks ago in [place] he underwent prostate biopsies I spoke with pt's by phone later in the day - she just received biopsy results - NO prostate ca; I had her look at the reports while on the phone - no mention of prostatitis patient denied any complaints during my visit Review of Systems Review of Systems: gen - fatigue, weak cv - no cp pulm - no dyspnea GI - no nausea or abd pain Physical Exam Physical Exam: gen - fatigued, weak, but able to answer questions mouth - MM dry neck - no JVD; right IJ CVC clean heart - RRR, s1 s2, no murmur lungs - CTA b/l abd - soft NT ND BS+ ext - no edema, pulses 2+ b/l psych - awake, alert Results & Data Results & Data Vital Signs (Past 12 Hours) Vital Signs Temp Pulse Resp BP Pulse Ox O2 Del Method FiO2 05/30/24 18:00 117/63 05/30/24 18:00 37.7 C H 77 25 H 05/30/24 17:57 37.7 C H 76 23 05/30/24 17:00 105/50 L 05/30/24 17:00 105/50 L 05/30/24 17:00 105/50 L 05/30/24 17:00 37.6 C H 72 23 96 05/30/24 16:48 37.6 C H 73 20 97 05/30/24 16:06 37.4 C 73 18 98 05/30/24 16:00 107/61 05/30/24 16:00 131/53 L 05/30/24 15:45 37.3 C 74 17 99 05/30/24 15:42 37.3 C 71 20 99 05/30/24 15:03 37.2 C 74 22 98 05/30/24 15:00 103/62 05/30/24 15:00 103/62 05/30/24 14:57 37.2 C 72 19 99 05/30/24 14:30 37.2 C 75 14 100 05/30/24 14:06 37.1 C 72 21 99 05/30/24 14:00 101/58 L 05/30/24 14:00 101/58 L 05/30/24 13:57 37.1 C 72 21 99 05/30/24 13:45 131/53 L 05/30/24 13:33 37.1 C 74 21 98 05/30/24 13:09 37.1 C 71 21 97 05/30/24 13:00 101/59 L 05/30/24 12:57 37.0 C 76 20 94 05/30/24 12:30 37.0 C 83 21 100 05/30/24 12:09 36.9 C 71 19 96 05/30/24 12:00 97/62 L 05/30/24 11:48 36.8 C 81 20 92 05/30/24 11:00 36.9 C 77 19 98 05/30/24 10:47 109/65 05/30/24 10:47 109/65 05/30/24 10:42 36.8 C 71 16 100 05/30/24 10:39 36.8 C 73 15 100 05/30/24 10:06 36.7 C 72 14 100 05/30/24 10:00 106/64 05/30/24 09:57 36.7 C 58 L 18 99 05/30/24 09:30 36.6 C 61 17 98 05/30/24 09:15 36.6 C 58 L 18 98 05/30/24 09:00 121/72 05/30/24 08:54 36.6 C 56 L 18 99 05/30/24 08:36 36.6 C 57 L 18 100 05/30/24 08:30 119/65 05/30/24 08:16 107/68 05/30/24 08:15 36.7 C 69 17 98 05/30/24 08:03 36.7 C 78 24 100 05/30/24 08:00 40 05/30/24 08:00 40 05/30/24 08:00 64 05/30/24 07:38 64 21 99 40 05/30/24 07:33 36.8 C 70 20 98 05/30/24 07:30 Mechanical Vent 05/30/24 07:30 109/68 05/30/24 07:27 36.8 C 68 20 98 Laboratory Results Laboratory Results - last 24 hr 05/29/24 05/29/24 05/29/24 18:50 19:05 20:04 WBC 9.81 RBC 3.81 L Hgb 10.4 L POC Hgb 10.5 L Hct 32.9 L POC Hct 31 L MCV 86.4 MCH 27.3 MCHC 31.6 L RDW Std Deviation 47.0 H RDW Coeff of Michael 14.8 H Plt Count 304 MPV 9.3 L Immature Gran % (Auto) 0.4 Neut % (Auto) 95.0 Lymph % (Auto) 3.9 [place] % (Auto) 0.2 Eos % (Auto) 0.3 Baso % (Auto) 0.2 Neut # (Auto) 9.32 H Lymph # (Auto) 0.38 L [place] # (Auto) 0.02 L Eos # (Auto) 0.03 Baso # (Auto) 0.02 Immature Gran # (Auto) 0.04 Hyposegmented Neuts 1+ Toxic Vacuolation 1+ RBC Morphology Polychromasia 1+ PT 12.4 H INR 1.2 H APTT 21 PTT Ratio 0.8 Specimen Type Sample Site POC pH POC pCO2 POC pO2 POC HCO3 POC Base Excess O2 Sat Pulse Oximetry ABG pH (Temp Correct) ABG pCO2 (Temp Corrct POC ABG pO2 at Pt Temp POC ABG O2 Sat [place] Test VBG pH 7.43 H VBG pCO2 40 VBG pO2 < 20 VBG HCO3 27 VBG O2 Saturation < 60.0 VBG Base Excess 2.0 O2 Delivery Device Vent Mode POC FiO2 End Tidal CO2 POC Sodium 138 Sodium 137 POC Potassium 4.0 Potassium 3.7 POC Chloride 101 Chloride 101 Carbon Dioxide 25 POC Total CO2 23 L Anion Gap 11 POC Anion Gap 20.0 POC BUN 20 H BUN 20 Creatinine 1.46 H POC Creatinine 1.7 H Est Cr Clr Drug Dosing Not Reportable eGFR 50.15 BUN/Creatinine Ratio 13.7 Glucose 219 H POC Glucose POC Glucose (other) 202 H Estimat Average Glucose Hemoglobin A1c Lactate 2.6 H* Calcium 10.1 POC Ioniz Calcium Ara 1.26 Phosphorus Magnesium 1.2 L Total Bilirubin 1.0 Direct Bilirubin 0.3 H AST 19 ALT 42 Alkaline Phosphatase 80 Troponin I High Sens 242.0 H* Total Protein 7.0 Albumin 3.9 Globulin Albumin/Globulin Ratio Procalcitonin 4.25 H Random Cortisol Urine Color Urine Appearance Urine pH Ur Specific [place] Urine Protein Urine Glucose (UA) Urine Ketones Urine Blood Urine Nitrite Urine Bilirubin Urine Urobilinogen Ur Leukocyte Esterase Urine WBC (Auto) Urine RBC (Auto) U Hyaline Cast (Auto) U Epithel Cells (Auto) Urine Bacteria (Auto) Urine Opiates Screen Ur Methadone, Qual Urine Fentanyl Screen Urine Barbiturates Ur Phencyclidine (PCP) U Amphetamin/Meth Scrn MDMA (Ecstasy) Screen U Benzodiazepines Scrn Ur Cocaine Metabolite U Marijuana (THC) Screen Ethyl Alcohol mg/dL < 10.0 Bacteroides fragilis DETECTED A Bld Cult ID Panel PCR See PCR Comment 05/29/24 05/29/24 05/29/24 20:05 21:11 21:51 WBC RBC Hgb POC Hgb Hct POC Hct MCV MCH MCHC RDW Std Deviation RDW Coeff of Michael Plt Count MPV Immature Gran % (Auto) Neut % (Auto) Lymph % (Auto) [place] % (Auto) Eos % (Auto) Baso % (Auto) Neut # (Auto) Lymph # (Auto) [place] # (Auto) Eos # (Auto) Baso # (Auto) Immature Gran # (Auto) Hyposegmented Neuts Toxic Vacuolation RBC Morphology Polychromasia PT INR APTT PTT Ratio Specimen Type Sample Site POC pH POC pCO2 POC pO2 POC HCO3 POC Base Excess O2 Sat Pulse Oximetry ABG pH (Temp Correct) ABG pCO2 (Temp Corrct POC ABG pO2 at Pt Temp POC ABG O2 Sat Aguila Test VBG pH VBG pCO2 VBG pO2 VBG HCO3 VBG O2 Saturation VBG Base Excess O2 Delivery Device Vent Mode POC FiO2 End Tidal CO2 POC Sodium Sodium POC Potassium Potassium POC Chloride Chloride Carbon Dioxide POC Total CO2 Anion Gap POC Anion Gap POC BUN BUN Creatinine POC Creatinine Est Cr Clr Drug Dosing eGFR BUN/Creatinine Ratio Glucose POC Glucose POC Glucose (other) Estimat Average Glucose Hemoglobin A1c Lactate 2.0 Calcium POC Ioniz Calcium Ara Phosphorus Magnesium Total Bilirubin Direct Bilirubin AST ALT Alkaline Phosphatase Troponin I High Sens 1224.2 H* D Total Protein Albumin Globulin Albumin/Globulin Ratio Procalcitonin Random Cortisol Urine Color Dark Yellow Urine Appearance Clear Urine pH 5.0 Ur Specific [place] > 1.045 H Urine Protein Trace H Urine Glucose (UA) Negative Urine Ketones 1+ H Urine Blood 1+ H Urine Nitrite Positive A Urine Bilirubin Negative Urine Urobilinogen Negative Ur Leukocyte Esterase Negative Urine WBC (Auto) 0-5 Urine RBC (Auto) >20 H U Hyaline Cast (Auto) 0-2 U Epithel Cells (Auto) 0-2 Urine Bacteria (Auto) None Seen Urine Opiates Screen Neg Ur Methadone, Qual Neg Urine Fentanyl Screen Neg Urine Barbiturates Neg Ur Phencyclidine (PCP) Neg U Amphetamin/Meth Scrn Neg MDMA (Ecstasy) Screen Neg U Benzodiazepines Scrn Neg Ur Cocaine Metabolite Neg U Marijuana (THC) Screen Neg Ethyl Alcohol mg/dL Bacteroides fragilis Bld Cult ID Panel PCR 05/30/24 05/30/24 05/30/24 02:42 02:49 03:47 WBC 18.96 H RBC 3.05 L Hgb 8.3 L POC Hgb Hct 26.7 L POC Hct MCV 87.5 MCH 27.2 MCHC 31.1 L RDW Std Deviation 47.7 H RDW Coeff of Michael 15.0 H Plt Count 244 MPV 9.3 L Immature Gran % (Auto) 1.7 Neut % (Auto) 91.9 Lymph % (Auto) 2.4 [place] % (Auto) 3.2 Eos % (Auto) 0.5 Baso % (Auto) 0.3 Neut # (Auto) 17.43 H Lymph # (Auto) 0.45 L [place] # (Auto) 0.61 H Eos # (Auto) 0.10 Baso # (Auto) 0.05 Immature Gran # (Auto) 0.32 H Hyposegmented Neuts Toxic Vacuolation RBC Morphology Unremarkable Polychromasia PT INR APTT PTT Ratio Specimen Type Sample Site POC pH POC pCO2 POC pO2 POC HCO3 POC Base Excess O2 Sat Pulse Oximetry ABG pH (Temp Correct) ABG pCO2 (Temp Corrct POC ABG pO2 at Pt Temp POC ABG O2 Sat Aguila Test VBG pH VBG pCO2 VBG pO2 VBG HCO3 VBG O2 Saturation VBG Base Excess O2 Delivery Device Vent Mode POC FiO2 End Tidal CO2 POC Sodium Sodium 135 L POC Potassium Potassium 3.8 POC Chloride Chloride 107 Carbon Dioxide 18 L POC Total CO2 Anion Gap 10 POC Anion Gap POC BUN BUN 21 Creatinine 1.59 H POC Creatinine Est Cr Clr Drug Dosing 40.8 eGFR 45.27 BUN/Creatinine Ratio 13.2 Glucose 284 H POC Glucose 264 H POC Glucose (other) Estimat Average Glucose 151 Hemoglobin A1c 6.9 H Lactate 1.8 Calcium 8.0 L D POC Ioniz Calcium Ara Phosphorus Magnesium Total Bilirubin 1.0 Direct Bilirubin AST 35 ALT 38 Alkaline Phosphatase 57 Troponin I High Sens 1874.6 H* D Total Protein 5.4 L D Albumin 3.0 L Globulin 2.4 L Albumin/Globulin Ratio 1.3 Procalcitonin Random Cortisol 34.67 Urine Color Urine Appearance Urine pH Ur Specific [place] Urine Protein Urine Glucose (UA) Urine Ketones Urine Blood Urine Nitrite Urine Bilirubin Urine Urobilinogen Ur Leukocyte Esterase Urine WBC (Auto) Urine RBC (Auto) U Hyaline Cast (Auto) U Epithel Cells (Auto) Urine Bacteria (Auto) Urine Opiates Screen Ur Methadone, Qual Urine Fentanyl Screen Urine Barbiturates Ur Phencyclidine (PCP) U Amphetamin/Meth Scrn MDMA (Ecstasy) Screen U Benzodiazepines Scrn Ur Cocaine Metabolite U Marijuana (THC) Screen Ethyl Alcohol mg/dL Bacteroides fragilis Bld Cult ID Panel PCR 05/30/24 05/30/24 05/30/24 05:16 05:59 07:45 WBC RBC Hgb POC Hgb 9.5 L Hct POC Hct 28 L MCV MCH MCHC RDW Std Deviation RDW Coeff of Michael Plt Count MPV Immature Gran % (Auto) Neut % (Auto) Lymph % (Auto) [place] % (Auto) Eos % (Auto) Baso % (Auto) Neut # (Auto) Lymph # (Auto) [place] # (Auto) Eos # (Auto) Baso # (Auto) Immature Gran # (Auto) Hyposegmented Neuts Toxic Vacuolation RBC Morphology Polychromasia PT INR APTT PTT Ratio Specimen Type Arterial Sample Site Art Line POC pH 7.28 L POC pCO2 39 POC pO2 173 H POC HCO3 18 L POC Base Excess -9.0 O2 Sat Pulse Oximetry 100 ABG pH (Temp Correct) 7.271 L ABG pCO2 (Temp Corrct 39 POC ABG pO2 at Pt Temp 175 POC ABG O2 Sat 99.0 H Aguila Test Pass VBG pH VBG pCO2 VBG pO2 VBG HCO3 VBG O2 Saturation VBG Base Excess O2 Delivery Device Ventilator Vent Mode AC POC FiO2 60 End Tidal CO2 33 POC Sodium 135 Sodium POC Potassium 4.9 Potassium POC Chloride Chloride Carbon Dioxide POC Total CO2 19 L Anion Gap POC Anion Gap POC BUN BUN Creatinine POC Creatinine Est Cr Clr Drug Dosing eGFR BUN/Creatinine Ratio Glucose POC Glucose 349 H* POC Glucose (other) 341 H Estimat Average Glucose Hemoglobin A1c Lactate Calcium POC Ioniz Calcium Ara Phosphorus Magnesium Total Bilirubin Direct Bilirubin AST ALT Alkaline Phosphatase Troponin I High Sens Total Protein Albumin Globulin Albumin/Globulin Ratio Procalcitonin Random Cortisol Urine Color Urine Appearance Urine pH Ur Specific [place] Urine Protein Urine Glucose (UA) Urine Ketones Urine Blood Urine Nitrite Urine Bilirubin Urine Urobilinogen Ur Leukocyte Esterase Urine WBC (Auto) Urine RBC (Auto) U Hyaline Cast (Auto) U Epithel Cells (Auto) Urine Bacteria (Auto) Urine Opiates Screen Ur Methadone, Qual Urine Fentanyl Screen Urine Barbiturates Ur Phencyclidine (PCP) U Amphetamin/Meth Scrn MDMA (Ecstasy) Screen U Benzodiazepines Scrn Ur Cocaine Metabolite U Marijuana (THC) Screen Ethyl Alcohol mg/dL Bacteroides fragilis Bld Cult ID Panel PCR 05/30/24 05/30/24 05/30/24 07:52 09:06 09:55 WBC RBC Hgb POC Hgb Hct POC Hct MCV MCH MCHC RDW Std Deviation RDW Coeff of Michael Plt Count MPV Immature Gran % (Auto) Neut % (Auto) Lymph % (Auto) [place] % (Auto) Eos % (Auto) Baso % (Auto) Neut # (Auto) Lymph # (Auto) [place] # (Auto) Eos # (Auto) Baso # (Auto) Immature Gran # (Auto) Hyposegmented Neuts Toxic Vacuolation RBC Morphology Polychromasia PT INR APTT PTT Ratio Specimen Type Sample Site POC pH POC pCO2 POC pO2 POC HCO3 POC Base Excess O2 Sat Pulse Oximetry ABG pH (Temp Correct) ABG pCO2 (Temp Corrct POC ABG pO2 at Pt Temp POC ABG O2 Sat Aguila Test VBG pH VBG pCO2 VBG pO2 VBG HCO3 VBG O2 Saturation VBG Base Excess O2 Delivery Device Vent Mode POC FiO2 End Tidal CO2 POC Sodium Sodium POC Potassium Potassium POC Chloride Chloride Carbon Dioxide POC Total CO2 Anion Gap POC Anion Gap POC BUN BUN Creatinine POC Creatinine Est Cr Clr Drug Dosing eGFR BUN/Creatinine Ratio Glucose POC Glucose POC Glucose (other) 326 H Estimat Average Glucose Hemoglobin A1c Lactate Calcium POC Ioniz Calcium Ara Phosphorus 4.4 Magnesium 1.8 Total Bilirubin Direct Bilirubin AST ALT Alkaline Phosphatase Troponin I High Sens 902.1 H* D Total Protein Albumin Globulin Albumin/Globulin Ratio Procalcitonin Random Cortisol Urine Color [place] Urine Appearance Turbid A Urine pH 5.0 Ur Specific [place] 1.025 Urine Protein 3+ H Urine Glucose (UA) Negative Urine Ketones Trace H Urine Blood 3+ H Urine Nitrite Positive A Urine Bilirubin 1+ H Urine Urobilinogen Negative Ur Leukocyte Esterase 2+ H Urine WBC (Auto) >50 H Urine RBC (Auto) >20 H U Hyaline Cast (Auto) 0-2 U Epithel Cells (Auto) 3-5 H Urine Bacteria (Auto) None Seen Urine Opiates Screen Ur Methadone, Qual Urine Fentanyl Screen Urine Barbiturates Ur Phencyclidine (PCP) U Amphetamin/Meth Scrn MDMA (Ecstasy) Screen U Benzodiazepines Scrn Ur Cocaine Metabolite U Marijuana (THC) Screen Ethyl Alcohol mg/dL Bacteroides fragilis Bld Cult ID Panel PCR 05/30/24 05/30/24 05/30/24 10:08 11:11 12:02 WBC RBC Hgb POC Hgb Hct POC Hct MCV MCH MCHC RDW Std Deviation RDW Coeff of Michael Plt Count MPV Immature Gran % (Auto) Neut % (Auto) Lymph % (Auto) [place] % (Auto) Eos % (Auto) Baso % (Auto) Neut # (Auto) Lymph # (Auto) [place] # (Auto) Eos # (Auto) Baso # (Auto) Immature Gran # (Auto) Hyposegmented Neuts Toxic Vacuolation RBC Morphology Polychromasia PT INR APTT PTT Ratio Specimen Type Sample Site POC pH POC pCO2 POC pO2 POC HCO3 POC Base Excess O2 Sat Pulse Oximetry ABG pH (Temp Correct) ABG pCO2 (Temp Corrct POC ABG pO2 at Pt Temp POC ABG O2 Sat Aguila Test VBG pH VBG pCO2 VBG pO2 VBG HCO3 VBG O2 Saturation VBG Base Excess O2 Delivery Device Vent Mode POC FiO2 End Tidal CO2 POC Sodium Sodium POC Potassium Potassium POC Chloride Chloride Carbon Dioxide POC Total CO2 Anion Gap POC Anion Gap POC BUN BUN Creatinine POC Creatinine Est Cr Clr Drug Dosing eGFR BUN/Creatinine Ratio Glucose POC Glucose 220 H 187 H POC Glucose (other) 301 H Estimat Average Glucose Hemoglobin A1c Lactate Calcium POC Ioniz Calcium Ara Phosphorus Magnesium Total Bilirubin Direct Bilirubin AST ALT Alkaline Phosphatase Troponin I High Sens Total Protein Albumin Globulin Albumin/Globulin Ratio Procalcitonin Random Cortisol Urine Color Urine Appearance Urine pH Ur Specific [place] Urine Protein Urine Glucose (UA) Urine Ketones Urine Blood Urine Nitrite Urine Bilirubin Urine Urobilinogen Ur Leukocyte Esterase Urine WBC (Auto) Urine RBC (Auto) U Hyaline Cast (Auto) U Epithel Cells (Auto) Urine Bacteria (Auto) Urine Opiates Screen Ur Methadone, Qual Urine Fentanyl Screen Urine Barbiturates Ur Phencyclidine (PCP) U Amphetamin/Meth Scrn MDMA (Ecstasy) Screen U Benzodiazepines Scrn Ur Cocaine Metabolite U Marijuana (THC) Screen Ethyl Alcohol mg/dL Bacteroides fragilis Bld Cult ID Panel PCR 05/30/24 05/30/24 05/30/24 13:07 14:20 15:26 WBC RBC Hgb POC Hgb Hct POC Hct MCV MCH MCHC RDW Std Deviation RDW Coeff of Michael Plt Count MPV Immature Gran % (Auto) Neut % (Auto) Lymph % (Auto) [place] % (Auto) Eos % (Auto) Baso % (Auto) Neut # (Auto) Lymph # (Auto) [place] # (Auto) Eos # (Auto) Baso # (Auto) Immature Gran # (Auto) Hyposegmented Neuts Toxic Vacuolation RBC Morphology Polychromasia PT INR APTT PTT Ratio Specimen Type Sample Site POC pH POC pCO2 POC pO2 POC HCO3 POC Base Excess O2 Sat Pulse Oximetry ABG pH (Temp Correct) ABG pCO2 (Temp Corrct POC ABG pO2 at Pt Temp POC ABG O2 Sat Aguila Test VBG pH VBG pCO2 VBG pO2 VBG HCO3 VBG O2 Saturation VBG Base Excess O2 Delivery Device Vent Mode POC FiO2 End Tidal CO2 POC Sodium Sodium POC Potassium Potassium POC Chloride Chloride Carbon Dioxide POC Total CO2 Anion Gap POC Anion Gap POC BUN BUN Creatinine POC Creatinine Est Cr Clr Drug Dosing eGFR BUN/Creatinine Ratio Glucose POC Glucose 146 H 106 H 98 POC Glucose (other) Estimat Average Glucose Hemoglobin A1c Lactate Calcium POC Ioniz Calcium Ara Phosphorus Magnesium Total Bilirubin Direct Bilirubin AST ALT Alkaline Phosphatase Troponin I High Sens Total Protein Albumin Globulin Albumin/Globulin Ratio Procalcitonin Random Cortisol Urine Color Urine Appearance Urine pH Ur Specific [place] Urine Protein Urine Glucose (UA) Urine Ketones Urine Blood Urine Nitrite Urine Bilirubin Urine Urobilinogen Ur Leukocyte Esterase Urine WBC (Auto) Urine RBC (Auto) U Hyaline Cast (Auto) U Epithel Cells (Auto) Urine Bacteria (Auto) Urine Opiates Screen Ur Methadone, Qual Urine Fentanyl Screen Urine Barbiturates Ur Phencyclidine (PCP) U Amphetamin/Meth Scrn MDMA (Ecstasy) Screen U Benzodiazepines Scrn Ur Cocaine Metabolite U Marijuana (THC) Screen Ethyl Alcohol mg/dL Bacteroides fragilis Bld Cult ID Panel PCR 05/30/24 05/30/24 16:22 17:13 WBC RBC Hgb POC Hgb Hct POC Hct MCV MCH MCHC RDW Std Deviation RDW Coeff of Michael Plt Count MPV Immature Gran % (Auto) Neut % (Auto) Lymph % (Auto) [place] % (Auto) Eos % (Auto) Baso % (Auto) Neut # (Auto) Lymph # (Auto) [place] # (Auto) Eos # (Auto) Baso # (Auto) Immature Gran # (Auto) Hyposegmented Neuts Toxic Vacuolation RBC Morphology Polychromasia PT INR APTT PTT Ratio Specimen Type Sample Site POC pH POC pCO2 POC pO2 POC HCO3 POC Base Excess O2 Sat Pulse Oximetry ABG pH (Temp Correct) ABG pCO2 (Temp Corrct POC ABG pO2 at Pt Temp POC ABG O2 Sat Aguila Test VBG pH VBG pCO2 VBG pO2 VBG HCO3 VBG O2 Saturation VBG Base Excess O2 Delivery Device Vent Mode POC FiO2 End Tidal CO2 POC Sodium Sodium POC Potassium Potassium POC Chloride Chloride Carbon Dioxide POC Total CO2 Anion Gap POC Anion Gap POC BUN BUN Creatinine POC Creatinine Est Cr Clr Drug Dosing eGFR BUN/Creatinine Ratio Glucose POC Glucose 120 H 127 H POC Glucose (other) Estimat Average Glucose Hemoglobin A1c Lactate Calcium POC Ioniz Calcium Ara Phosphorus Magnesium Total Bilirubin Direct Bilirubin AST ALT Alkaline Phosphatase Troponin I High Sens Total Protein Albumin Globulin Albumin/Globulin Ratio Procalcitonin Random Cortisol Urine Color Urine Appearance Urine pH Ur Specific [place] Urine Protein Urine Glucose (UA) Urine Ketones Urine Blood Urine Nitrite Urine Bilirubin Urine Urobilinogen Ur Leukocyte Esterase Urine WBC (Auto) Urine RBC (Auto) U Hyaline Cast (Auto) U Epithel Cells (Auto) Urine Bacteria (Auto) Urine Opiates Screen Ur Methadone, Qual Urine Fentanyl Screen Urine Barbiturates Ur Phencyclidine (PCP) U Amphetamin/Meth Scrn MDMA (Ecstasy) Screen U Benzodiazepines Scrn Ur Cocaine Metabolite U Marijuana (THC) Screen Ethyl Alcohol mg/dL Bacteroides fragilis Bld Cult ID Panel PCR Diagnostic Findings Microbiology 05/29/24 20:04 Blood Aerobic Blood Culture - Preliminary No growth in Aerobic bottle after 24 hours. 05/29/24 20:04 Blood Anaerobic Blood Culture - Preliminary Gram negative bacilli 05/29/24 20:04 Blood Aerobic Blood Culture - Preliminary No growth in Aerobic bottle after 24 hours. 05/29/24 20:04 Blood Anaerobic Blood Culture - Preliminary Gram negative bacilli PG Care Time/CCT Total # of Minutes Spent Total Time Spent with Patient: Total time spent is greater than 50% in coordination of care (as documented) at patient's floor/unit and/or counseling patient: Coding Level of Care Code 83141 SUB INP/OBS CARE 3/50MIN Diagnoses Septic shock A41.9; R65.21 Prostate abscess N41.2 Bacteremia R78.81 Sepsis A41.9 Elevated troponin I level R79.89 Hypomagnesemia E83.42 Diabetes E11.9 Hypertension I10 NSTEMI (non-ST elevated myocardial infarction) I21.4 Acute metabolic encephalopathy G93.41 Acute kidney injury N17.9
[2024-05-30] MEDS ORDERED: INSULIN ASPART PER UNIT CHARGE SC SCH (21:00)
[2024-05-30] MEDS ORDERED: DAPTOmycin 425 MG in SYRINGE 0 ML IV SCH (22:00)
[2024-05-31 07:13] LABS: Hematocrit (blood only) 26.1 % (42.0-52.0); Hemoglobin 8.2 g/dl (14.0-18.0); Mean Corpuscular Hemoglobin 27.2 pg (25.0-34.0); Mean Corpuscular Hgb Conc 31.4 g/dL (32.0-36.0); Mean Corpuscular Volume 86.4 fL (80.0-100.0); Platelet Count 157 K/uL (130-400); RDW Coefficient of Variation 15.2 % (11.5-14.5); RDW Standard Deviation 48.3 fL (36.4-46.3); Red Blood Count 3.02 M/uL (4.70-6.10); White Blood Count 24.46 K/ul (4.8-10.8)
[2024-05-31 07:54] LABS: Folate (Folic Acid),Ser orPlas 16.86 ng/ml (>5.38)
[2024-05-31 08:00] LABS: Basophils # (auto) 0.06 K/uL (0.00-0.20); Basophils % (auto) 0.2 %; Eosinophils # (auto) 0.15 K/uL (0.00-0.50); Eosinophils % (auto) 0.6 %; Immature Granulocytes # (auto) 0.27 K/uL (0.01-0.20); Immature Granulocytes % (auto) 1.1 %; Lymphocytes # (auto) 1.01 K/uL (1.20-3.40); Lymphocytes % (auto) 4.1 %; Monocytes # (auto) 1.03 K/uL (0.11-0.59); Monocytes % (auto) 4.2 %; Neutrophils # (auto) 21.94 K/uL (1.40-6.50); Neutrophils % (auto) 89.8 %; Polychromasia 1+
[2024-05-31] MEDS: ACETAMINOPHEN 500 MG TAB PO PRN (08:35)
--- NOTE | 2024-05-31 08:50 | Urology Progress Note ---
Date of Service May 31, 2024 Assessment & Plan (1) Prostate abscess: (2) Bacteremia: (3) Septic shock: Plan: 73 yo/M with history of outpatient prostate biopsy 2 weeks ago at home in [place] admitted for septic shock and prostate abscess. Patient status post urethral dilation and TURP for prostate abscess with Dr. Agudelo on 05/30. Patient was extubated and off pressors as of yesterday, transferred to telemetry Remains afebrile, hemodynamically stable Labs todaycreatinine 1.26, WBC 24.46, hemoglobin 8.2 Blood cultures with gram negative bacilli Continue broad-spectrum antibiotics and narrow per sensitivity data when available Quinones patent and draining appropriately CBI was discontinued yesterday Maintain Quinones catheter for now and plan for voiding trial prior to discharge Continue antibiotics, supportive care and medical management per hospital medicine Recommend 4 weeks of antibiotics Recommend he f/u with his urologist at home for ongoing management will sign off, recall as needed Admission and Anticipated Discharge Date Admission Date: May 30, 2024 Subjective Patient seen and examined at bedside this morning. He was extubated yesterday morning and off of pressors. Transferred to telemetry. He is awake and alert this am. Denies discomfort. CBI discontinued, Quinones patent. He has some dysur ia. Denies fever or chills. Review of Systems Constitutional: as per Subjective / HPI Genitourinary: + as per Subjective / HPI Physical Exam Constitutional: well developed and well nourished; no acute distress Respiratory: no respiratory distress and no labored breathing Gastrointestinal (Abdomen): Inspection/Auscultation: abdomen normal to inspection Musculoskeletal: Head/Neck/Chest: normocephalic Neurologic: moves all extremities and awake Psychiatric: Orientation: alert and oriented x 3 Genitourinary: Quinones patent and draining Results & Data Vital Signs (Past 12 Hours) Vital Signs Temp Pulse Pulse Resp BP BP Pulse Ox 05/31/24 07:20 83 05/31/24 07:13 36.6 C 77 18 113/67 96 05/31/24 02:53 36.8 C 80 18 91/48 L 96 05/30/24 23:50 36.7 C 80 18 95/55 L 92 O2 Del Method O2 Flow Rate 05/31/24 07:20 05/31/24 07:13 Nasal Cannula 2 05/31/24 02:53 Nasal Cannula 2.0 05/30/24 23:50 Nasal Cannula 2 PG Care Time/CCT Total # of Minutes Spent Total Time Spent with Patient: Total time spent is greater than 50% in coordination of care (as documented) at patient's floor/unit and/or counseling patient: Coding Level of Care Code 62192 SUB INP/OBS CARE 25MIN Diagnoses Prostate abscess N41.2 Bacteremia R78.81 Septic shock A41.9; R65.21
[2024-05-31 09:55] LABS: Anion Gap 5 (3-11); BUN Creatinine Ratio 23.8 (10-20); Blood Urea Nitrogen 30 mg/dl (6-23); Calcium 8.4 mg/dl (8.6-10.3); Carbon Dioxide 24 mmol/L (21-32); Chloride 108 mmol/L (98-107); Creatinine Clr Calc Pharmacy 51.4 ml/min; Glucose 139 mg/dl (70-99(Fasting)); Potassium 4.4 mmol/L (3.5-5.1); Sodium 137 mmol/L (136-145)
[2024-05-31 09:58] LABS: Iron < 10 mcg/dl (35-175); Unsaturated Iron Binding Cap 219 mcg/dl (155-355)
[2024-05-31 10:12] LABS: Ferritin 273.2 ng/ml (8-388)
[2024-05-31] MEDS: MEROPENEM 500 MG in SYRINGE 0 ML IV SCH (12:21)
[2024-05-31] MEDS: CEFEPIME 2000MG 2,000 MG/20 ML SYR IV SCH (17:51)
[2024-05-31] MEDS: metroNIDAZOLE 500 MG/100 ML BAG IV SCH (17:52)
--- NOTE | 2024-05-31 19:48 | Hospitalist Progress Note ---
Date of Service May 31, 2024 Assessment & Plan (1) Septic shock: Plan: source - prostate abscess with bacteremia 2nd to Bacteroides Fragilis in light of nature of the abscess and to ensure source control obtained repeat blood cx's this morning did require pressors hospital day #1 into hospital day #2 then weaned off cortisol level adequate holding BP meds was on meropenem initially --> changed to IV cefepime today cont IV flagyl if nothing else grows beyond the B Fragilis could potentially Rx with cipro/levaquin (cover other gram negatives) + flagyl -- all oral -- at discharge would Rx for 4 weeks to cover the abscess & great potential for existing prostatitis (2) Prostate abscess: Plan: POD #2 s/p I/D of abscess with TURP by Dr Agudelo appreciate his assistance suspect he developed the abscess as a complication of his recent prostate biopsies which, by report, were about 2 weeks ago in his home [facility] DM certainly is a risk factor for surgical complications, infection, etc. cont IV cefepime with flagyl pain meds prn of note - prostate biopsies from this admission from his I/D were negative for cancer (3) Bacteremia: Plan: 2nd to Bacteroides Fragilis see above repeat blood cx's this am for test of cure in light of his prostate abscess (4) Sepsis: Plan: as above (5) Elevated troponin I level: Plan: peak troponin 1873 this is a type 2 ME in the setting of his septic shock no evidence of ACS echo with preserved EF and normal LV wall motion seen by cardiology - no cath, etc needed at this time but consider asa, BB, etc after his illness has resolved (6) Hypomagnesemia: Plan: Mg= 1.2 upon admission repleted, resolved (7) Diabetes: Plan: hemoglobin a1c 6.9% per pharmacy records is on the following at home - * glipizide * januvia * metformin * actos * Ozempic hold all meds did require insulin infusion overnight per ICU protocol significant hyperglycemia in setting of #1 transitioned to SC regimen sugars still high add lantus 8 units daily cont novolog and adjust parameters DM diet resume his PO meds at discharge (8) Hypertension: Plan: typically on alpha agustina & lisinopril at home both on hold due to recent shock (9) NSTEMI (non-ST elevated myocardial infarction): Plan: type 2 ME / myocardial demand ischemia see above (10) Acute metabolic encephalopathy: Plan: 2nd to #1 resolved (11) Acute kidney injury: Plan: sepsis-associated ATN likely Peak Cr 1.59 now 1.2 today repeat BMP am Plan start heparin SC for DVT prophylaxis passed PT, OT evals remove right IJ central line remove cruz tomorrow for voiding trial Donna extensively updated by phone this evening as well as on 05/30 she now reports she is not coming on 06/01 she asks that we call her on 06/01 to try and estimate his d/c date she is not sure if she will personally come and get him, pay for an airplane flight to get him back to [place], or ask his [employer] company to pick him up here in [place] Admission and Anticipated Discharge Date Admission Date: May 30, 2024 Subjective tele overnight wnl patient feeling MUCH better appetite is good denies any abd pain, pelvic pain, perineal pain he is having burning however from the bladder he asks when he can go back to [place] worked with PT and felt well during the session he stated his may be coming tomorrow from [place] Review of Systems Review of Systems: gen - no fevers or chills cv - no cp, no orthopnea pulm - no dyspnea at rest or with exertion GI - no N/V Physical Exam Physical Exam: gen - looks much better, nontoxic, awake/alert mouth - MMM neck - no JVD; right IJ CVC clean heart - RRR, s1 s2, no murmur lungs - CTA b/l abd - soft NT ND BS+ ext - no edema, pulses 2+ b/l psych - awake, alert, oriented x 3 Results & Data Results & Data Vital Signs (Past 12 Hours) Vital Signs Temp Pulse Pulse Resp BP Pulse Ox O2 Del Method 05/31/24 17:45 120 H 18 118/69 91 Room Air 05/31/24 17:20 99 H 18 130/65 91 Room Air 05/31/24 17:04 36.7 C 109 H 20 140/73 92 Room Air 05/31/24 15:27 Room Air 05/31/24 15:22 36.6 C 81 19 128/66 93 Room Air 05/31/24 14:19 75 05/31/24 12:13 36.6 C 73 18 106/60 91 Room Air Laboratory Results Laboratory Results - last 24 hr 05/30/24 05/31/24 05/31/24 20:27 06:42 07:36 WBC 24.46 H RBC 3.02 L Hgb 8.2 L Hct 26.1 L MCV 86.4 MCH 27.2 MCHC 31.4 L RDW Std Deviation 48.3 H RDW Coeff of Michael 15.2 H Plt Count 157 MPV 10.0 Immature Gran % (Auto) 1.1 Neut % (Auto) 89.8 Lymph % (Auto) 4.1 [place] % (Auto) 4.2 Eos % (Auto) 0.6 Baso % (Auto) 0.2 Neut # (Auto) 21.94 H Lymph # (Auto) 1.01 L [place] # (Auto) 1.03 H Eos # (Auto) 0.15 Baso # (Auto) 0.06 Immature Gran # (Auto) 0.27 H Polychromasia 1+ Sodium 137 Potassium 4.4 Chloride 108 H Carbon Dioxide 24 Anion Gap 5 BUN 30 H Creatinine 1.26 D Est Cr Clr Drug Dosing 51.4 eGFR 59.85 BUN/Creatinine Ratio 23.8 H Glucose 139 H POC Glucose 183 H 146 H Calcium 8.4 L Iron < 10 L TIBC TNP Unsaturated IBC 219 Transferrin % Sat TNP Ferritin 273.2 Vitamin B12 1066 H Folate 16.86 05/31/24 05/31/24 05/31/24 11:35 16:04 19:30 WBC RBC Hgb Hct MCV MCH MCHC RDW Std Deviation RDW Coeff of Michael Plt Count MPV Immature Gran % (Auto) Neut % (Auto) Lymph % (Auto) [place] % (Auto) Eos % (Auto) Baso % (Auto) Neut # (Auto) Lymph # (Auto) [place] # (Auto) Eos # (Auto) Baso # (Auto) Immature Gran # (Auto) Polychromasia Sodium Potassium Chloride Carbon Dioxide Anion Gap BUN Creatinine Est Cr Clr Drug Dosing eGFR BUN/Creatinine Ratio Glucose POC Glucose 189 H 180 H 207 H Calcium Iron TIBC Unsaturated IBC Transferrin % Sat Ferritin Vitamin B12 Folate Diagnostic Findings Microbiology 05/29/24 20:04 Blood Aerobic Blood Culture - Preliminary No growth in Aerobic bottle after 24 hours. 05/29/24 20:04 Blood Anaerobic Blood Culture - Preliminary Bacteroides fragilis 05/29/24 20:04 Blood Aerobic Blood Culture - Preliminary No growth in Aerobic bottle after 24 hours. 05/29/24 20:04 Blood Anaerobic Blood Culture - Preliminary Bacteroides fragilis 05/30/24 09:55 Urine,Indwelling Cath Urine Culture - Preliminary No growth - Less than 1,000 colonies/mL, Final report to follow. 05/29/24 21:51 Urine,Clean Catch Urine Culture - Preliminary No growth - Less than 1,000 colonies/mL, Final report to follow. PG Care Time/CCT Total # of Minutes Spent Total Time Spent with Patient: Total time spent is greater than 50% in coordination of care (as documented) at patient's floor/unit and/or counseling patient: Coding Level of Care Code 19838 SUB INP/OBS CARE 3/50MIN Diagnoses Septic shock A41.9; R65.21 Prostate abscess N41.2 Bacteremia R78.81 Sepsis A41.9 Elevated troponin I level R79.89 Hypomagnesemia E83.42 Diabetes E11.9 Hypertension I10 NSTEMI (non-ST elevated myocardial infarction) I21.4 Acute metabolic encephalopathy G93.41 Acute kidney injury N17.9
[2024-05-31] MEDS: LANTUS PER UNIT CHARGE SQ SCH (21:14)
[2024-05-31] MEDS: PHENAZOPYRIDINE HCL 100 MG TAB PO PRN (21:38)
[2024-05-31] MEDS: SODIUM CHLORIDE 0.9% 1,000 ML IV SCH (21:38)
[2024-05-31] MEDS: METOPROLOL TARTRATE 1 MG/ML VIAL IV STA (23:10)
[2024-05-31] MEDS: MAGNESIUM SULFATE / D5W 1 GM/100 ML BAG IV SCH (23:11)
[2024-06-01] MEDS: METOPROLOL TARTRATE 1 MG/ML VIAL IV STA (00:26)
--- NOTE | 2024-06-01 06:23 | Communication Note ---
Date of Service: June 01, 2024 Notified by nursing that patient appeared to be going in and out of atrial fibrillation, no documented history of a. fib. HR ranging from 120s-130s at that time. EKG ordered, showed atrial flutter. I ordered IVF bolus x1L NSS as well as 2g magnesium sulfate IV. BP stable, HR remained around 110s. I ordered two doses of lopressor 2.5mg IV over the course of the night, patient converted back to sinus rhythm with HR 70s-80s at last vital signs assessment. Resident Activity Tracking Resident Involvement: Resident Care Provided Care Provided: Adult Hospital Medicine
[2024-06-01] MEDS: ONDANSETRON INJ 2 MG/ML 2 ML VIAL IV PRN (06:46)
[2024-06-01 08:17] LABS: Hematocrit (blood only) 28.8 % (42.0-52.0); Hemoglobin 9.3 g/dl (14.0-18.0); Mean Corpuscular Hemoglobin 27.2 pg (25.0-34.0); Mean Corpuscular Hgb Conc 32.3 g/dL (32.0-36.0); Mean Corpuscular Volume 84.2 fL (80.0-100.0); Platelet Count 198 K/uL (130-400); RDW Standard Deviation 46.1 fL (36.4-46.3); Red Blood Count 3.42 M/uL (4.70-6.10); White Blood Count 20.84 K/ul (4.8-10.8)
[2024-06-01 08:31] LABS: BUN Creatinine Ratio 21.3 (10-20); Calcium 8.6 mg/dl (8.6-10.3); Magnesium 2.1 mg/dl (1.7-2.4); Potassium 4.2 mmol/L (3.5-5.1)
[2024-06-01 08:46] LABS: Thyroid Stimulating Hormone 3.228 uIu/ml (0.300-4.500)
--- NOTE | 2024-06-01 08:58 | Electrocardiogram Report ---
Test Reason : Blood Pressure : */* mmHG Vent. Rate : 120 BPM Atrial Rate : 326 BPM P-R Int : * ms QRS Dur : 96 ms QT Int : 306 ms P-R-T Axes : * 28 10 degrees QTcB Int : 432 ms Atrial flutter with variable A-V block with premature ventricular or aberrantly conducted complexes Abnormal ECG When compared with ECG of 29-May-2024 22:20, GIven similar rate, previous tracings may have been atrial flutter as well Confirmed by Ja Bolden ([id number]) on 06/01/2024 8:58:03 AM Referred By: NO PCP Confirmed By: Ja Bolden
[2024-06-01] MEDS: HEPARIN SOD 5,000 UNIT/0.5 ML VIAL SQ SCH (10:10)
--- NOTE | 2024-06-01 18:38 | Hospitalist Progress Note ---
Date of Service June 01, 2024 Assessment & Plan (1) Septic shock: Plan: source - prostate abscess with bacteremia 2nd to Bacteroides Fragilis in light of nature of the abscess and to ensure source control obtained repeat blood cx's this morning did require pressors hospital day #1 into hospital day #2 then weaned off cortisol level adequate holding BP meds was on meropenem initially --> changed to IV cefepime today cont IV flagyl if nothing else grows beyond the B Fragilis could potentially Rx with cipro/levaquin (cover other gram negatives) + flagyl -- all oral -- at discharge would Rx for 4 weeks to cover the abscess & great potential for existing prostatitis (2) Prostate abscess: Plan: POD #3 s/p I/D of abscess with TURP by Dr Agudelo appreciate his assistance signed off today. Cruz catheter still in place. Will keep that in place tonight and discussed possibility of removing it tomorrow for voiding trial. suspect he developed the abscess as a complication of his recent prostate biopsies which, by report, were about 2 weeks ago in his home state of [place] DM certainly is a risk factor for surgical complications, infection, etc. cont IV cefepime with flagyl pain meds prn of note - prostate biopsies from this admission from his I/D were negative for cancer (3) Bacteremia: Plan: 2nd to Bacteroides Fragilis see above repeat blood cx's x 2 were negative (4) Sepsis: Plan: as above (5) Elevated troponin I level: Plan: peak troponin 1874 this is a type 2 SD in the setting of his septic shock no evidence of ACS echo with preserved EF and normal LV wall motion seen by cardiology - no cath, etc needed at this time but consider asa, BB, etc after his illness has resolved Recommend follow-up by cardiology when he returns home to [place] (6) Hypomagnesemia: Plan: Mg= 1.2 upon admission repleted, resolved (7) Diabetes: Plan: hemoglobin a1c 6.9% per pharmacy records is on the following at home - * glipizide * januvia * metformin * actos * Ozempic hold all meds did require insulin infusion overnight per ICU protocol significant hyperglycemia in setting of #1 transitioned to SC regimen sugars still high add lantus 8 units daily cont novolog and adjust parameters DM diet resume his PO meds at discharge (8) Hypertension: Plan: typically on alpha agustina & lisinopril at home both on hold due to recent shock (9) NSTEMI (non-ST elevated myocardial infarction): Plan: type 2 SD / myocardial demand ischemia see above (10) Acute metabolic encephalopathy: Plan: 2nd to #1 resolved (11) Acute kidney injury: Plan: sepsis-associated ATN likely Peak Cr 1.59 now 1.2 today repeat BMP am Plan start heparin SC for DVT prophylaxis passed PT, OT evals remove right IJ central line remove cruz tomorrow for voiding trial Donna extensively updated by phone this evening as well as on 05/30 she now reports she is not coming on 06/01 Called Donna and updated her tonight. Will give her an update again tomorrow (06/02/2024). she is not sure if she will personally come and get him, pay for an airplane flight to get him back to [place], or ask his [employer] company to pick him up here in [place] Admission and Anticipated Discharge Date Admission Date: May 30, 2024 Supervising Physician Co-Signing Physician Notes chart reviewed, case d/w E Juaquin PAC - as above Subjective Attending: Dr. Kennedy This is a 73-year-old male. 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 Police were called and patient was brought in by EMS. He was septic from prostate biopsy done in [place] 2 weeks ago. Patient was intubated and admitted to the intensive care unit. Patient was quickly weaned from the ventilator and downgraded to telemetry. Central line, arterial line were also discontinued. Patient remains on telemetry and is doing much better. He continues with Cruz catheter which has good output and no evidence of bleeding. White count remains elevated 20.84. Electrolytes are balanced. Renal function is within normal limits. Patient is afebrile. Vital signs are stable. Patient is oxygenating well on room air and 90% SpO2. Patient is feeling much better. He has no acute complaints today. Review of Systems 2 Review of Systems: A total of 10 systems was reviewed and is negative other than as listed in the HPI Physical Exam 2 Physical Exam: GENERAL : No acute distress EYES: No icterus, gaze conjugate NOSE: No evidence of epistaxis MOUTH: No lesions or candidiasis NECK: Supple LUNGS: CTA B/L, no wheezes, rales or rhonchi HEART: Regular, rate controlled ABDOMEN: Soft, NT, ND, BS Present : Cruz catheter is in place and secure with good output and no evidence of blood in the Cruz collection container EXTREMITIES: No LE edema, pedal pulses intact NEURO: A&OX3 Results & Data Results & Data Vital Signs (Past 12 Hours) Vital Signs Temp Pulse Resp BP BP Pulse Ox O2 Del Method 06/01/24 15:51 37.0 C 72 16 146/73 H 90 Room Air 06/01/24 11:19 36.4 C L 79 16 131/73 90 Room Air 06/01/24 07:20 37.6 C H 81 16 132/77 92 Room Air Laboratory Results 06/01/24 07:43 06/01/24 07:43 Diagnostic Findings Abdomen/Pelvis CT 05/29/24 18:40 Exam(s): CT ABDOMEN + PELVIS With Contrast IV Amt: 117 ml optiray 320 EXAM: CT Abdomen and Pelvis With Intravenous Contrast CLINICAL HISTORY: Reason for exam: ams. TECHNIQUE: Axial computed tomography images of the abdomen and pelvis with intravenous contrast. CTDI is 23.96 mGy and DLP is 1229.07 mGy-cm. Automated exposure control was utilized for the study. A dose lowering technique was utilized adhering to the principles of ALARA. Bilateral arms in the field of view, mild breathing and patient motion limits evaluation. CONTRAST: Patient received 117 ml optiray 320 of IV contrast COMPARISON: None. FINDINGS: Lung bases: Clear. Small hiatal hernia. Liver: Mild fatty infiltration. Gallbladder and bile ducts: No ductal dilation. Pancreas: No ductal dilation, or acute pancreatitis. Spleen: Unremarkable. Adrenals: Unremarkable. Kidneys and ureters: Small cortical renal cysts. No pyelonephritis or hydronephrosis. Stomach and bowel: No obstruction. Diverticulosis without acute diverticulitis. Appendix: Normal. Intraperitoneal space: No free air or fluid. Bones/joints: No acute fracture. Soft tissues: Unremarkable. Vasculature: No aortic aneurysm. Lymph nodes: No enlarged lymph nodes. Bladder/Reproductive: Markedly abnormal centrally cystic or necrotic mass indenting the inferior urinary bladder, likely associated with the prostate gland, measuring 9.7 x 7.2 x 7.2 cm. Could reflect abscess, urinoma and/or neoplasm. Bladder is only mildly distended with wall thickening, nonspecific. Cannot rule out cystitis. IMPRESSION: 1. Large centrally cystic or necrotic mass of the prostate gland, indenting the urinary bladder, nonspecific, could reflect abscess, urine collection and/or neoplasm. 2. Bladder wall thickening, cannot rule out cystitis. 3. No ascites or adenopathy. 4. Incidental fatty liver, hiatal hernia, diverticulosis and renal cysts. Electronically signed by: Gretta Dye M.D. 05/29/24 21:33 PM Chest CTA 05/29/24 18:40 Exam(s): CTA CHEST IV Amt: 117 ml optiray 320 EXAM: CT Angiography Chest With Intravenous Contrast CLINICAL HISTORY: Reason for exam: PE. TECHNIQUE: Axial computed tomographic angiography images of the chest with intravenous contrast. CTDI is 33.17 mGy and DLP is 1129.23 mGy-cm. Automated exposure control was utilized for the study. A dose lowering technique was utilized adhering to the principles of ALARA. 117 ML Optiray 320 given IV. Suboptimal bolus, bilateral arms in the field of view and breathing motion artifact moderately limits evaluation, particularly for small or peripheral disease MIP reconstructed images were created and reviewed. COMPARISON: None. FINDINGS: Pulmonary arteries: No large or central pulmonary embolism. Limited detail for peripheral disease due to suboptimal bolus and breathing motion artifact. Aorta: No dissection or aneurysm. Lungs: Clear. No consolidation. Pleural space: No significant effusion. No pneumothorax. Heart: Moderate cardiomegaly. No significant pericardial effusion. No evidence of elevated right heart pressures. Bones/joints: No acute fracture. Soft tissues: Small hiatal hernia and mild fatty liver. Lymph nodes: No enlarged lymph nodes. IMPRESSION: 1. No definite pulmonary embolism. Limited detail for peripheral disease due to artifact. 2. Moderate cardiomegaly, small hiatal hernia and fatty liver. 3. Lungs are clear. Electronically signed by: Gretta Dye M.D. 05/29/24 21:20 PM Chest X-Ray 05/29/24 18:40 Exam(s): XR CXR 1 VIEW EXAM: XR Chest, 1 View CLINICAL HISTORY: Reason for exam: Sepsis. TECHNIQUE: Frontal view of the chest. COMPARISON: Chest CT, same date FINDINGS: Lungs: Mild vascular prominence, stable, likely chronic. No consolidation. Pleural space: No pneumothorax. Heart: Mild cardiomegaly. Mediastinum: Unremarkable. Bones/Soft Tissues: No acute abnormality. IMPRESSION: 1. No definite acute process in the chest. Electronically signed by: Gretta Dye M.D. 05/29/24 22:[address] 05/29/24 18:40 Exam(s): CT HEAD Without Contrast EXAM: CT Head Without Intravenous Contrast CLINICAL HISTORY: Reason for exam: ams. TECHNIQUE: Axial computed tomography images of the head/brain without intravenous contrast. CTDI is 36.31 mGy and DLP is 624.41 mGy-cm. Automated exposure control was utilized for the study. A dose lowering technique was utilized adhering to the principles of ALARA. COMPARISON: No relevant prior studies available. FINDINGS: Brain: No hemorrhage. No apparent acute cortical infarct. No mass lesion or midline shift. Senescent changes. Ventricles: No hydrocephalus. Bones/joints: No acute fracture. Soft tissues: Unremarkable. Sinuses: No acute sinusitis. Mastoid air cells: No mastoid effusion. Orbits: No acute process. IMPRESSION: No acute intracranial process. Electronically signed by: Sai Perez M.D. 05/29/24 20:27 PM Chest X-Ray 05/30/24 03:47 EXAM: XR chest 1V portable CLINICAL HISTORY: [facility] TECHNIQUE: X-ray image of the chest was obtained in 1 view: AP projection. COMPARISON: No prior studies are available for comparison. FINDINGS: Central venous line is seen with its tip in a normal position. The endotracheal tube is seen with its tip 4.6 cm from soumya in normal position. Pulmonary Parenchyma: Prominent bronchovascular markings are seen in bilateral perihilar regions. Minimal blunting of left costophrenic angle is seen likely due to minimal pleural thickening/effusion. Heart and Mediastinum: Heart size and shape are normal. No mediastinal widening or masses. No hilar or mediastinal lymphadenopathy. The right hilum appears prominent. Bony Thorax: Bony thorax appears intact without fractures or deformities. Soft Tissues: Soft tissues overlying the chest wall are unremarkable. IMPRESSION: Central venous line is seen with its tip in normal position. The endotracheal tube is seen with its tip 4.6 cm from soumya in normal position. Imaging findings are likely due to pulmonary congestion, clinical and lab correlation is advised to rule out pulmonary infection. Electronically signed by Christine Reyes 05-30-2024 08:24 AM PG Care Time/CCT Total # of Minutes Spent Total Time Spent with Patient: Total time spent is greater than 50% in coordination of care (as documented) at patient's floor/unit and/or counseling patient: 45 minutes including discussion with other providers and Donna in [place] Coding Level of Care Code 63774 SUB INP/OBS CARE 2/35MIN Diagnoses Septic shock A41.9; R65.21 Prostate abscess N41.2 Bacteremia R78.81 Sepsis A41.9 Elevated troponin I level R79.89 Hypomagnesemia E83.42 Diabetes E11.9 Hypertension I10 NSTEMI (non-ST elevated myocardial infarction) I21.4 Acute metabolic encephalopathy G93.41 Acute kidney injury N17.9 Time Spent (min) 45
[2024-06-02] MEDS: MELATONIN 3 MG TAB PO PRN (00:26)
[2024-06-02] MEDS ORDERED: METOPROLOL TARTRATE 1 MG/ML VIAL IV PRN (02:47)
[2024-06-02] MEDS: SODIUM CHLORIDE 0.9% 1,000 ML IV ONE (02:55)
[2024-06-02] MEDS: METOPROLOL TARTRATE 1 MG/ML VIAL IV STA (03:06)
[2024-06-02 06:32] LABS: Basophils # (auto) 0.07 K/uL (0.00-0.20); Basophils % (auto) 0.4 %; Eosinophils # (auto) 0.37 K/uL (0.00-0.50); Eosinophils % (auto) 2.1 %; Hematocrit (blood only) 30.5 % (42.0-52.0); Hemoglobin 9.5 g/dl (14.0-18.0); Immature Granulocytes # (auto) 0.17 K/uL (0.01-0.20); Immature Granulocytes % (auto) 0.9 %; Lymphocytes # (auto) 1.83 K/uL (1.20-3.40); Lymphocytes % (auto) 10.2 %; Mean Corpuscular Hemoglobin 26.8 pg (25.0-34.0); Mean Corpuscular Hgb Conc 31.1 g/dL (32.0-36.0); Mean Corpuscular Volume 85.9 fL (80.0-100.0); Monocytes % (auto) 5.6 %; Neutrophils % (auto) 80.8 %; Platelet Count 192 K/uL (130-400); RDW Standard Deviation 47.4 fL (36.4-46.3); Red Blood Count 3.55 M/uL (4.70-6.10); White Blood Count 17.94 K/ul (4.8-10.8)
[2024-06-02 06:40] LABS: Albumin Globulin Ratio 0.9 (0.9-2); Albumin Level 2.8 gm/dl (3.4-5.0); BUN Creatinine Ratio 17.1 (10-20); Bilirubin,Total 0.9 mg/dl (0.2-1.0); Calcium 8.6 mg/dl (8.6-10.3); Creatinine Clr Calc Pharmacy 61.7 ml/min; Globulin 3.1 gm/dl (2.5-4.0); Magnesium 1.8 mg/dl (1.7-2.4); Potassium 4.4 mmol/L (3.5-5.1); Total Protein 5.9 gm/dl (6.0-8.3)
--- NOTE | 2024-06-02 08:33 | Electrocardiogram Report ---
Test Reason : Blood Pressure : */* mmHG Vent. Rate : 94 BPM Atrial Rate : 202 BPM P-R Int : * ms QRS Dur : 98 ms QT Int : 348 ms P-R-T Axes : * 9 10 degrees QTcB Int : 435 ms Atrial fibrillation Low voltage QRS Abnormal ECG When compared with ECG of 31-May-2024 21:11, Atrial fibrillation has replaced Atrial flutter HR has decreased by 26 bpm Confirmed by Ja Bolden ([id number]) on 06/02/2024 8:32:46 AM Referred By: NO PCP Confirmed By: Ja Bolden
--- NOTE | 2024-06-02 10:09 | Cardiology Progress Note ---
Date of Service June 02, 2024 Assessment & Plan (1) Paroxysmal atrial flutter: (2) Paroxysmal A-fib: (3) Demand ischemia: (4) Septic shock: Plan He is doing well from an overall clinical standpoint, however given recent demand ischemia episode and the challenging logistics of posthospitalization monitoring (he will be returning to [place] and will need to seek out a duco polisher), would be reasonable to temporarily aggressively suppress his atrial tachydysrhythmias. Although the occurrence of his atrial dysrhythmias occurred in the hyperadrenergic setting of sepsis/hypotension/pulmonary edema and may not require long-term antiarrhythmic, the fact that he is having further episodes despite clinical and hemodynamic stability and normalization of electrolytes suggests a tendency to recurrent atrial dysrhythmia. Although his relatively young age would weigh against long-term amiodarone use, feel it would be reasonable to initiate and utilize amiodarone for a few months to maximize likelihood of maintaining sinus rhythm while limiting of the duration of exposu re to limit potential side effects. Once he establishes with a duco polisher in [place], ambulatory ECG monitoring could be obtained and the amiodarone potential weaned off. Although he has not had sustained episodes, since he will at least temporarily not be monitored and does not have any major contraindications, would recommend initiating anticoagulation with apixaban 5 mg twice daily. Recommend amiodarone 200 mg 3 times daily as loading dose (could go higher but with low normal heart rate would like to avoid bradycardia). Upon hospital prateek lucas could decrease amiodarone to 200 mg twice daily. Will follow along while he is hospitalized, hopefully he can be discharged in about 48 hours. Admission and Anticipated Discharge Date Admission Date: May 30, 2024 Subjective He has been gradually progressing clinically, he remains afebrile with favorable hemodynamics, but he has had multiple episodes of paroxysmal atrial flutter/fibrillation over the past few days. He denies any associated symptoms, no chest pain, dyspnea, or tachypalpitations. No presyncope or syncope. Telemetry over the past day shows predominantly sinus rhythm at normal heart rates but with breakthrough episodes of atrial flutter and later atrial fibrillation at rates of up to 120 bpm. Physical Exam Physical Exam: No distress. Afebrile. Normotensive. Pulse 60 bpm and regular. Respirations 16 and unlabored. Skin: no ecchymoses or generalized lesions. HEENT: unremarkable. Neck: Right IJ access site bandage clean and dry. JVP at the clavicle at 90 degrees, no carotid bruits. Lungs: clear. Cardiac: regular rhythm, normal S1-2, no murmur. Abdomen: benign. Extremities: no edema, pulses intact. Neurologic: normal affect and conversation, nonfocal. Results & Data Vital Signs (Past 12 Hours) Vital Signs Temp Pulse Pulse Resp BP Pulse Ox O2 Del Method 06/02/24 07:21 61 06/02/24 07:11 98.2 F 64 16 123/69 96 Nasal Cannula 06/02/24 04:53 98.4 F 86 18 124/73 93 Nasal Cannula 06/02/24 02:08 98.6 F 75 16 123/67 91 Room Air 06/01/24 22:50 98.1 F 75 16 128/70 91 Room Air O2 Flow Rate 06/02/24 07:21 06/02/24 07:11 2 06/02/24 04:53 2 06/02/24 02:08 06/01/24 22:50 Laboratory Results WBC 17.94, hemoglobin 9.5, normal platelet count. Normal electrolytes, BUN 18, creatinine 1.05. Magnesium 1.8. PG Care Time/CCT Total # of Minutes Spent Total Time Spent with Patient: Total time spent is greater than 50% in coordination of care (as documented) at patient's floor/unit and/or counseling patient: Coding Level of Care Code 19849 SUB INP/OBS CARE 3/50MIN Diagnoses Paroxysmal atrial flutter I48.92 Paroxysmal A-fib I48.0 Demand ischemia I24.89 Septic shock A41.9; R65.21
--- NOTE | 2024-06-02 17:13 | Hospitalist Progress Note ---
Date of Service June 02, 2024 Assessment & Plan (1) Paroxysmal A-fib: Plan: Patient with new onset a flutter which converted to atrial fibrillation. Cardiology consulted. Appreciate Dr. Bolden's input Patient will be returning to [place] and will need to seek out a roof bolter operator there for monitoring. Will initiate amiodarone 200 mg p.o. 3 times daily as a loading dose. At time of hospital discharge could decrease amiodarone to 200 mg twice daily and have patient follow-up in [place] Will also initiate anticoagulation with apixaban 5 mg p.o. twice daily At this time, patient is relatively rate controlled so beta-agustina will not be initiated Continue on telemetry. Will plan on monitoring amiodarone for toxicity for at least 2 days until Monday. Reevaluation for discharge planning at that time. (2) Elevated troponin I level: Plan: peak troponin 1873 this is a type 2 AR in the setting of his septic shock no evidence of ACS echo with preserved EF and normal LV wall motion seen by cardiology - no cath, etc needed at this time but consider asa, BB, etc after his illness has resolved Recommend follow-up by cardiology when he returns home to [place] (3) Septic shock: Plan: source - prostate abscess with bacteremia 2nd to Bacteroides Fragilis in light of nature of the abscess and to ensure source control obtained repeat blood cx's this morning did require pressors hospital day #1 into hospital day #2 then weaned off cortisol level adequate holding BP meds and blood pressure remains in the 120s over 70s was on meropenem initially --> changed to IV cefepime cont IV flagyl if nothing else grows beyond the B Fragilis could potentially Rx with cipro/levaquin (cover other gram negatives) + flagyl -- all oral -- at discharge would Rx for 4 weeks to cover the abscess & great potential for existing prostatitis (4) Prostate abscess: Plan: POD #4 s/p I/D of abscess with TURP by Dr Agudelo appreciate his assistance signed off today. Cruz catheter still in place. Will keep that in place tonight and discussed possibility of removing it tomorrow for voiding trial. suspect he developed the abscess as a complication of his recent prostate biopsies which, by report, were about 2 weeks ago in his home state of [place] DM certainly is a risk factor for surgical complications, infection, etc. cont IV cefepime with flagyl pain meds prn of note - prostate biopsies from this admission from his I/D were negative for cancer. Also discussed with . She reports that biopsies in [place] were also negative for cancer (5) Bacteremia: Plan: 2nd to Bacteroides Fragilis see above repeat blood cx's x 2 were negative (6) Sepsis: Plan: as above (7) Hypomagnesemia: Plan: Mg= 1.2 upon admission repleted, resolved (8) Diabetes: Plan: hemoglobin a1c 6.9% per pharmacy records is on the following at home - * glipizide * januvia * metformin * actos * Ozempic hold all meds did require insulin infusion overnight per ICU protocol significant hyperglycemia in setting of #1 transitioned to SC regimen sugars still high add lantus 8 units daily cont novolog and adjust parameters DM diet resume his PO meds at discharge (9) Hypertension: Plan: typically on alpha agustina & lisinopril at home both on hold due to recent shock and patient currently stable with blood pressure (10) NSTEMI (non-ST elevated myocardial infarction): Plan: type 2 AR / myocardial demand ischemia see above (11) Acute metabolic encephalopathy: Plan: 2nd to #1 resolved (12) Acute kidney injury: Plan: sepsis-associated ATN likely Peak Cr 1.59 now 1.2 today repeat BMP am Plan Stop heparin SC for DVT prophylaxis and start Apixaban for A fib which will cover prophylaxis passed PT, OT evals right IJ central line removed cruz removed for voiding trial. Urinating without difficulty. No hematuria Donna extensively updated by phone daily she is not sure if she will personally come and get him, pay for an airplane flight to get him back to [place], or ask his [employer] company to pick him up here in [place] Patient started on Amiodarone for a fib on 06/02/2024. 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 Kennedy He has been gradually progressing clinically. He remains afebrile. He has had multiple episodes of paroxysmal atrial flutter/fibrillation over the past few days. Some of these seem to correlate with possible sleep apnea. Patient reports severe snoring at home. No history of polysomnography He denies any associated symptoms, no chest pain, dyspnea, or tachypalpitations. No presyncope or syncope. Telemetry over the past day shows predominantly sinus rhythm at normal heart rates but with breakthrough episodes of atrial flutter and later atrial fibrillation at rates of up to 120 bpm. No prior history of atrial fibrillation or atrial flutter. Patient has no abdominal pain. No hematuria. No difficulty with urinating or with defecation. Appetite is appropriate. Patient is sleeping well. No other acute complaints. Review of Systems 2 Review of Systems: A total of 10 systems was reviewed and is negative other than as listed in the HPI Physical Exam 2 Physical Exam: GENERAL : No acute distress EYES: No icterus, gaze conjugate NOSE: No evidence of epistaxis MOUTH: No lesions or candidiasis NECK: Supple LUNGS: CTA B/L, no wheezes, rales or rhonchi HEART: Regular, rate controlled ABDOMEN: Soft, NT, ND, BS Present : Cruz catheter in place at the time of my examination. Orders given to remove and do voiding trial EXTREMITIES: No LE edema, pedal pulses intact NEURO: A&OX3 Results & Data Results & Data Vital Signs (Past 12 Hours) Vital Signs Temp Pulse Pulse Resp BP Pulse Ox O2 Del Method 06/02/24 15:51 89 06/02/24 14:54 36.6 C 71 20 127/73 94 Room Air 06/02/24 11:06 36.5 C 75 18 110/65 97 Room Air 06/02/24 10:23 Room Air 06/02/24 07:21 61 06/02/24 07:11 36.8 C 64 16 123/69 96 Nasal Cannula O2 Flow Rate 06/02/24 15:51 06/02/24 14:54 06/02/24 11:06 06/02/24 10:23 06/02/24 07:21 06/02/24 07:11 2 Laboratory Results 06/02/24 05:52 06/02/24 05:52 Diagnostic Findings Abdomen/Pelvis CT 05/29/24 18:40 Exam(s): CT ABDOMEN + PELVIS With Contrast IV Amt: 117 ml optiray 320 EXAM: CT Abdomen and Pelvis With Intravenous Contrast CLINICAL HISTORY: Reason for exam: ams. TECHNIQUE: Axial computed tomography images of the abdomen and pelvis with intravenous contrast. CTDI is 23.96 mGy and DLP is 1229.07 mGy-cm. Automated exposure control was utilized for the study. A dose lowering technique was utilized adhering to the principles of ALARA. Bilateral arms in the field of view, mild breathing and patient motion limits evaluation. CONTRAST: Patient received 117 ml optiray 320 of IV contrast COMPARISON: None. FINDINGS: Lung bases: Clear. Small hiatal hernia. Liver: Mild fatty infiltration. Gallbladder and bile ducts: No ductal dilation. Pancreas: No ductal dilation, or acute pancreatitis. Spleen: Unremarkable. Adrenals: Unremarkable. Kidneys and ureters: Small cortical renal cysts. No pyelonephritis or hydronephrosis. Stomach and bowel: No obstruction. Diverticulosis without acute diverticulitis. Appendix: Normal. Intraperitoneal space: No free air or fluid. Bones/joints: No acute fracture. Soft tissues: Unremarkable. Vasculature: No aortic aneurysm. Lymph nodes: No enlarged lymph nodes. Bladder/Reproductive: Markedly abnormal centrally cystic or necrotic mass indenting the inferior urinary bladder, likely associated with the prostate gland, measuring 9.7 x 7.2 x 7.2 cm. Could reflect abscess, urinoma and/or neoplasm. Bladder is only mildly distended with wall thickening, nonspecific. Cannot rule out cystitis. IMPRESSION: 1. Large centrally cystic or necrotic mass of the prostate gland, indenting the urinary bladder, nonspecific, could reflect abscess, urine collection and/or neoplasm. 2. Bladder wall thickening, cannot rule out cystitis. 3. No ascites or adenopathy. 4. Incidental fatty liver, hiatal hernia, diverticulosis and renal cysts. Electronically signed by: Gretta Dye M.D. 05/29/24 21:33 PM Chest CTA 05/29/24 18:40 Exam(s): CTA CHEST IV Amt: 117 ml optiray 320 EXAM: CT Angiography Chest With Intravenous Contrast CLINICAL HISTORY: Reason for exam: PE. TECHNIQUE: Axial computed tomographic angiography images of the chest with intravenous contrast. CTDI is 33.17 mGy and DLP is 1129.23 mGy-cm. Automated exposure control was utilized for the study. A dose lowering technique was utilized adhering to the principles of ALARA. 117 ML Optiray 320 given IV. Suboptimal bolus, bilateral arms in the field of view and breathing motion artifact moderately limits evaluation, particularly for small or peripheral disease MIP reconstructed images were created and reviewed. COMPARISON: None. FINDINGS: Pulmonary arteries: No large or central pulmonary embolism. Limited detail for peripheral disease due to suboptimal bolus and breathing motion artifact. Aorta: No dissection or aneurysm. Lungs: Clear. No consolidation. Pleural space: No significant effusion. No pneumothorax. Heart: Moderate cardiomegaly. No significant pericardial effusion. No evidence of elevated right heart pressures. Bones/joints: No acute fracture. Soft tissues: Small hiatal hernia and mild fatty liver. Lymph nodes: No enlarged lymph nodes. IMPRESSION: 1. No definite pulmonary embolism. Limited detail for peripheral disease due to artifact. 2. Moderate cardiomegaly, small hiatal hernia and fatty liver. 3. Lungs are clear. Electronically signed by: Gretta Dye M.D. 05/29/24 21:20 PM L Chest X-Ray 05/29/24 18:40 Exam(s): XR CXR 1 VIEW EXAM: XR Chest, 1 View CLINICAL HISTORY: Reason for exam: Sepsis. TECHNIQUE: Frontal view of the chest. COMPARISON: Chest CT, same date FINDINGS: Lungs: Mild vascular prominence, stable, likely chronic. No consolidation. Pleural space: No pneumothorax. Heart: Mild cardiomegaly. Mediastinum: Unremarkable. Bones/Soft Tissues: No acute abnormality. IMPRESSION: 1. No definite acute process in the chest. Electronically signed by: Gretta Dye M.D. 05/29/24 22:[address] 05/29/24 18:40 Exam(s): CT HEAD Without Contrast EXAM: CT Head Without Intravenous Contrast CLINICAL HISTORY: Reason for exam: ams. TECHNIQUE: Axial computed tomography images of the head/brain without intravenous contrast. CTDI is 36.31 mGy and DLP is 624.41 mGy-cm. Automated exposure control was utilized for the study. A dose lowering technique was utilized adhering to the principles of ALARA. COMPARISON: No relevant prior studies available. FINDINGS: Brain: No hemorrhage. No apparent acute cortical infarct. No mass lesion or midline shift. Senescent changes. Ventricles: No hydrocephalus. Bones/joints: No acute fracture. Soft tissues: Unremarkable. Sinuses: No acute sinusitis. Mastoid air cells: No mastoid effusion. Orbits: No acute process. IMPRESSION: No acute intracranial process. Electronically signed by: Sai Perez M.D. 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 COMPARISON: No prior studies are available for comparison. FINDINGS: Central venous line is seen with its tip in a normal position. The endotracheal tube is seen with its tip 4.6 cm from soumya in normal position. Pulmonary Parenchyma: Prominent bronchovascular markings are seen in bilateral perihilar regions. Minimal blunting of left costophrenic angle is seen likely due to minimal pleural thickening/effusion. Heart and Mediastinum: Heart size and shape are normal. No mediastinal widening or masses. No hilar or mediastinal lymphadenopathy. The right hilum appears prominent. Bony Thorax: Bony thorax appears intact without fractures or deformities. Soft Tissues: Soft tissues overlying the chest wall are unremarkable. IMPRESSION: Central venous line is seen with its tip in normal position. The endotracheal tube is seen with its tip 4.6 cm from soumya in normal position. Imaging findings are likely due to pulmonary congestion, clinical and lab correlation is advised to rule out pulmonary infection. Electronically signed by Christine Reyes 05-30-2024 08:24 AM PG Care Time/CCT Total # of Minutes Spent Total Time Spent with Patient: Total time spent is greater than 50% in coordination of care (as documented) at patient's floor/unit and/or counseling patient: 40 minutes including patient visit and discussion with cardiology Coding Level of Care Code 99664 SUB INP/OBS CARE 2/35MIN Diagnoses Paroxysmal A-fib I48.0 Elevated troponin I level R79.89 Septic shock A41.9; R65.21 Prostate abscess N41.2 Bacteremia R78.81 Sepsis A41.9 Hypomagnesemia E83.42 Diabetes E11.9 Hypertension I10 NSTEMI (non-ST elevated myocardial infarction) I21.4 Acute metabolic encephalopathy G93.41 Acute kidney injury N17.9 Time Spent (min) 40
[2024-06-02] MEDS: AMIODARONE 200 MG TAB PO SCH (18:36)
[2024-06-02] MEDS: APIXABAN 5 MG TABLET PO SCH (21:03)
[2024-06-03 07:05] LABS: Basophils # (auto) 0.08 K/uL (0.00-0.20); Basophils % (auto) 0.5 %; Eosinophils # (auto) 0.42 K/uL (0.00-0.50); Eosinophils % (auto) 2.7 %; Hematocrit (blood only) 28.7 % (42.0-52.0); Hemoglobin 9.2 g/dl (14.0-18.0); Immature Granulocytes # (auto) 0.42 K/uL (0.01-0.20); Immature Granulocytes % (auto) 2.7 %; Lymphocytes # (auto) 2.03 K/uL (1.20-3.40); Mean Corpuscular Hemoglobin 26.7 pg (25.0-34.0); Mean Corpuscular Hgb Conc 32.1 g/dL (32.0-36.0); Mean Corpuscular Volume 83.2 fL (80.0-100.0); Mean Platelet Volume 9.9 fL (9.4-12.4); Monocytes # (auto) 1.09 K/uL (0.11-0.59); Neutrophils # (auto) 11.53 K/uL (1.40-6.50); Neutrophils % (auto) 74.1 %; Platelet Count 242 K/uL (130-400); RDW Coefficient of Variation 15.2 % (11.5-14.5); RDW Standard Deviation 46.5 fL (36.4-46.3); Red Blood Count 3.45 M/uL (4.70-6.10); White Blood Count 15.57 K/ul (4.8-10.8)
[2024-06-03 07:23] LABS: Calcium 8.9 mg/dl (8.6-10.3); Creatinine Clr Calc Pharmacy 72.8 ml/min; Magnesium 1.6 mg/dl (1.7-2.4); Potassium 4.1 mmol/L (3.5-5.1)
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
[2024-06-03] MEDS: MAGNESIUM SULFATE / D5W 1 GM/100 ML BAG IV SCH (09:18)
--- NOTE | 2024-06-03 10:52 | Cardiology Progress Note ---
Date of Service June 03, 2024 Assessment & Plan (1) Paroxysmal atrial flutter: (2) Paroxysmal A-fib: (3) Demand ischemia: (4) Septic shock: Plan Doing well, marked decrease in frequency and duration of paroxysmal atrial flutter since initiating amiodarone. After further oral amiodarone loading today (200 mg 3 times daily), should be ready for discharge by tomorrow. Upon discharge, would reduce amiodarone to 200 mg twice daily and continue apixaban 5 mg twice daily. 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 Perhaps we could have him sampler pickup and MCOT at our office tomorrow after discharge, he could mail it back after he completes 30 days (I will check with him on this option). 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 Admission and Anticipated Discharge Date Admission Date: May 30, 2024 Subjective He is doing well, no symptoms overnight. Denies chest pain, palpitations, or lightheadedness. 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 Physical Exam Physical Exam: No distress. Afebrile. Normotensive. Pulse 72 bpm and regular. Respirations 16 and unlabored. Skin: no ecchymoses or generalized lesions. HEENT: unremarkable. Neck: JVP at the clavicle at 90 degrees, no carotid bruits. Lungs: clear. Cardiac: regular rhythm, normal S1-2, no murmur. Abdomen: benign. Extremities: no edema, pulses intact. Neurologic: normal affect and conversation, nonfocal. Results & Data Vital Signs (Past 12 Hours) Vital Signs Temp Pulse Pulse Resp BP Pulse Ox O2 Del Method 06/03/24 08:00 73 06/03/24 07:56 97.9 F 74 16 118/56 L 97 Nasal Cannula 06/03/24 03:40 97.7 F 82 16 130/69 96 Nasal Cannula 06/02/24 23:31 97.9 F 80 16 125/69 91 Room Air O2 Flow Rate 06/03/24 08:00 06/03/24 07:56 2 06/03/24 03:40 2 06/02/24 23:31 Laboratory Results Normal electrolytes, BUN 16, creatinine 0.89. PG Care Time/CCT Total # of Minutes Spent Total Time Spent with Patient: Total time spent is greater than 50% in coordination of care (as documented) at patient's floor/unit and/or counseling patient: Coding Level of Care Code 68199 SUB INP/OBS CARE 2/35MIN Diagnoses Paroxysmal atrial flutter I48.92 Paroxysmal A-fib I48.0 Demand ischemia I24.89 Septic shock A41.9; R65.21
[2024-06-03] MEDS: metroNIDAZOLE 500 MG TAB PO SCH (20:39)
[2024-06-03] MEDS: CEFDINIR 300 MG CAP PO SCH (20:39)
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
[2024-06-04 07:34] LABS: Hemoglobin 10.8 g/dl (14.0-18.0); Mean Corpuscular Hemoglobin 26.9 pg (25.0-34.0); Mean Corpuscular Hgb Conc 31.8 g/dL (32.0-36.0); Mean Corpuscular Volume 84.8 fL (80.0-100.0); Mean Platelet Volume 9.4 fL (9.4-12.4); Platelet Count 313 K/uL (130-400); RDW Coefficient of Variation 15.1 % (11.5-14.5); RDW Standard Deviation 46.4 fL (36.4-46.3); Red Blood Count 4.01 M/uL (4.70-6.10); White Blood Count 13.46 K/ul (4.8-10.8)
[2024-06-04 07:46] LABS: BUN Creatinine Ratio 15.9 (10-20); Calcium 9.1 mg/dl (8.6-10.3); Creatinine Clr Calc Pharmacy 60.6 ml/min; Potassium 4.7 mmol/L (3.5-5.1)
[2024-06-04] MEDS: AMIODARONE 200 MG TAB PO SCH (07:51)
--- NOTE | 2024-06-04 11:36 | Cardiology Progress Note ---
Date of Service June 04, 2024 Assessment & Plan (1) Paroxysmal atrial flutter: (2) Paroxysmal A-fib: (3) Demand ischemia: (4) Septic shock: Plan No atrial dysrhythmias over the past 24 hours. Discharge on amiodarone 200 mg twice daily and apixaban 5 mg twice daily. MCOT ordered, he will tack picker the device from our office when he is leaving the hospital after his discharge later today. 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 Intent is for temporary amiodarone use, if MCOT benign he may be able to wean off of this. Admission and Anticipated Discharge Date Admission Date: May 30, 2024 Subjective Doing well. Uneventful night. Denies chest pain, dyspnea, palpitations, lightheadedness, or any other complaints. Telemetry showed sinus rhythm in the 70s. No further atrial tacky dysrhythmias. Physical Exam Physical Exam: No distress. Afebrile. Normotensive. Pulse 87 bpm and regular. Respirations 18 and unlabored. Skin: no ecchymoses or generalized lesions. HEENT: unremarkable. Neck: JVP at the clavicle at 90 degrees, no carotid bruits. Lungs: clear. Cardiac: regular rhythm, normal S1-2, no murmur. Abdomen: benign. Extremities: no edema, pulses intact. Neurologic: normal affect and conversation, nonfocal. Results & Data Vital Signs (Past 12 Hours) Vital Signs Temp Pulse Resp BP Pulse Ox O2 Del Method 06/04/24 07:56 98.2 F 87 18 118/56 L 96 Nasal Cannula 06/04/24 02:57 97.5 F L 74 16 123/68 96 Nasal Cannula Laboratory Results Normal electrolytes, BUN 17, creatinine 1.07. PG Care Time/CCT Total # of Minutes Spent Total Time Spent with Patient: Total time spent is greater than 50% in coordination of care (as documented) at patient's floor/unit and/or counseling patient: Coding Level of Care Code 67308 SUB INP/OBS CARE 2/35MIN Diagnoses Paroxysmal atrial flutter I48.92 Paroxysmal A-fib I48.0 Demand ischemia I24.89 Septic shock A41.9; R65.21
== END 2024-06-04 16:17 | disposition home or self-care (01) | DRG 853 ==
LOC: ED 18:28 → OR 05-30 00:01 → 1E 05-30 00:02 → SUATTDRO 05-30 00:02 → OR 05-30 00:23 → 1E 05-30 01:26 → 2S 05-30 18:05